=== PATIENT | male | born 1925 | race Caucasian/White ===

== ENCOUNTER → 2016-10-31 | Outpatient (CLI) | payer MEDICARE, BC ==
[~2016-10-31] MED LIST: AMLO5TAB2 PO; ATOR20TA42 PO; ATOR40TA16 PO; CEFU1TAB43 PO; CENTTAB9 PO; DIGO0.123 PO; DIGO0.25 PO; JANT5TAB PO; LEVO100T5 PO; LISI-366 PO; LISI40TA PO; METO100T9 PO; WARF2.5T40 PO; WARF5TAB PO
[2016-10-31 08:54] LABS: INTERNATIONAL NORMALIZED RATIO 2.8 RATIO; PROTHROMBIN TIME - PATIENT 32.4 SEC (9.8-11.6)
== END ==
LOC: PLAB 06:33
PROVIDERS: ATTEND Family Medicine
DX: Z79.01 Long term (current) use of anticoagulants (principal)
CPT/HCPCS: 36415; 85610

== ENCOUNTER → 2016-12-12 | Outpatient (CLI) | payer MEDICARE, BC ==
[2016-12-12 08:35] LABS: INTERNATIONAL NORMALIZED RATIO 2.7 RATIO; PROTHROMBIN TIME - PATIENT 31.4 SEC (9.8-11.6)
== END ==
LOC: PLAB 06:34
PROVIDERS: ATTEND Family Medicine
DX: Z79.01 Long term (current) use of anticoagulants (principal); Z51.81 Encounter for therapeutic drug level monitoring
CPT/HCPCS: 36415; 85610

== ENCOUNTER → 2016-12-21 | Outpatient (CLI) | payer MEDICARE, BC ==
[2016-12-21 08:49] LABS: INTERNATIONAL NORMALIZED RATIO 3.2 RATIO; PROTHROMBIN TIME - PATIENT 37.2 SEC (9.8-11.6)
[2016-12-21 10:10] LABS: AUTOMATED NEUTROPHIL # 6.5 TH/MM3 (1.8-7.7); BASOPHIL # 0.1 TH/MM3 (0-0.2); BASOPHIL % 1.2 % (0.0-2.0); EOSINOPHIL # 0.7 TH/MM3 (0-0.4); EOSINOPHIL % 7.7 % (0.0-4.0); HEMATOCRIT 34.6 % (39.0-51.0); HEMO FLAGS DIFF FINAL; LYMPH % 6.3 % (9.0-44.0); LYMPHOCYTE # 0.5 TH/MM3 (1.0-4.8); MEAN CELL VOLUME 87.9 FL (80.0-100.0); MEAN CORPUSCULAR HEMOGLOBIN 28.6 PG (27.0-34.0); MEAN CORPUSCULAR HGB CONC 32.5 % (32.0-36.0); MONO % 10.4 % (0.0-8.0); NEUT % 74.4 % (16.0-70.0); PLATELET COUNT 278 TH/MM3 (150-450); RED BLOOD COUNT 3.93 MIL/MM3 (4.50-5.90); RED CELL DISTRIBUTION WIDTH 14.3 % (11.6-17.2); WHITE BLOOD COUNT 8.7 TH/MM3 (4.0-11.0)
[2016-12-21 10:37] LABS: ALKALINE PHOSPHATASE 130 U/L (45-117); ALT (GPT) 24 U/L (12-78); ANION GAP 5 MEQ/L (5-15); AST (GOT) 22 U/L (15-37); BICARBONATE 29.6 MEQ/L (21.0-32.0); BLOOD UREA NITROGEN 31 MG/DL (7-18); CHLORIDE 106 MEQ/L (98-107); GLOMERULAR FILTRATION RATE 24 ML/MIN (>89); GLUCOSE,FASTING 114 MG/DL (74-99); HDL CHOLESTEROL 34.4 MG/DL (40.0-60.0); LDL CHOLESTEROL 75 MG/DL (0-99); SODIUM (NA) 141 MEQ/L (136-145); TOTAL BILIRUBIN ADULT 0.3 MG/DL (0.2-1.0)
== END ==
LOC: PLAB 06:46
PROVIDERS: ATTEND Family Medicine
DX: I10 Essential (primary) hypertension (principal); E78.4 Other hyperlipidemia; R53.81 Other malaise; R73.01 Impaired fasting glucose
CPT/HCPCS: 36415; 80053; 80061; 84439; 84443; 85025; 85610

== ENCOUNTER 2017-01-01 07:56 | Emergency (ER) | payer MEDICARE, BC ==
[~2017-01-01] VITALS: Ht 180.3 cm; Wt 76.5 kg
[~2017-01-01 07:56] MED LIST changes: -AMLO5TAB2 PO; -ATOR40TA16 PO; -DIGO0.25 PO; -JANT5TAB PO; -LEVO100T5 PO; -LISI40TA PO
[2017-01-01 08:00] VITALS: BP 168/67; PULSE 64; RESP 16; TEMP 97.7; O2SAT 97
[2017-01-01] MEDS ORDERED: DIGO0.25 PO (08:12)
[2017-01-01] MEDS ORDERED: ATOR40TA16 PO (08:12)
[2017-01-01] MEDS ORDERED: LISI40TA PO (08:12)
[2017-01-01] MEDS ORDERED: LEVO100T5 PO (08:12)
[2017-01-01] MEDS ORDERED: METO100T9 PO (08:12)
[2017-01-01] MEDS ORDERED: JANT5TAB PO (08:12)
[2017-01-01] MEDS ORDERED: AMLO5TAB2 PO (08:12)
--- NOTE | 2017-01-01 08:35 | PD ---
HPI Chief Complaint: Skin Problem Time Seen by Provider: 08:05 Travel History International Travel<30 days: No Contact w/Intl Traveler<30days: No Traveled to known affect area: No History of Present Illness HPI This 89-year-old male is complaining of a skin tear on his left elbow. He bumped the elbow on Monday he put a Band-Aid on it and when he took the Band- Aid off on Monday a lot of skin came off with it. He's had some oozing of blood from the area ever since. He has not had fever or chills. He is able to move the elbow without pain. He has a history of valve repair and atrial fibrillation. He is on Coumadin and digoxin. His INR was 3.2 on December 21. 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) Other Surgery: Yes Social History Alcohol Use: Yes (OCC.) Tobacco Use: No (QUIT 1959) Substance Use: No Allergies-Medications (Allergen,Severity, Reaction): Coded Allergies: No Known Allergies (Verified , 01/01/17) Reported Meds & Prescriptions Reported Meds & Active Scripts Active Reported Amlodipine (Amlodipine Besylate) 5 Mg Tab 5 Mg PO DAILY Digoxin 0.25 Mg Tab 0.25 Mg PO DAILY Jantoven (Warfarin) 5 Mg Tab 5 Mg PO DAILY Atorvastatin (Atorvastatin Calcium) 40 Mg Tab 40 Mg PO HS Metoprolol Succinate ER 24 HR (Metoprolol Succinate) 100 Mg Tab 100 Mg PO DAILY Lisinopril 40 Mg Tab 40 Mg PO DAILY Review of Systems General / Constitutional: No: Fever, Chills Eyes: No: Diploplia HENT: No: Vertigo Cardiovascular: No: Chest Pain or Discomfort, Palpitations Gastrointestinal: No: Vomiting, Diarrhea Skin: Positive Rash Hematologic/Lymphatic: Positive: Easy Bruising Physical Exam Narrative GENERAL: Well-developed male SKIN: Focused skin assessment warm/dry. HEAD: Atraumatic. Normocephalic. EYES: Pupils equal and round. No scleral icterus. No injection or drainage. ENT: No nasal bleeding or discharge. Mucous membranes pink and moist. NECK: Trachea midline. No JVD. MUSCULOSKELETAL: No obvious deformities. No clubbing. No cyanosis. No edema. Examining the left elbow he has full range of motion. There is a skin tear with some oozing of blood. There has been also part of the skin from the stair. Skin turgor is a tooth 3 cm in length. There is no erythema or purulent drainage NEUROLOGICAL: Awake and alert. No obvious cranial nerve deficits. Motor grossly within normal limits. Normal speech. PSYCHIATRIC: Appropriate mood and affect; insight and judgment normal. Data Data Last Documented VS Vital Signs Date Time Temp Pulse Resp B/P Pulse Ox O2 Delivery O2 Flow Rate FiO2 01/01/17 08:00 97.7 64 16 168/67 97 Orders Prothrombin Time / Inr (Pt) (01/01/17 08:14) Labs Laboratory Tests Test 01/01/17 08:20 Prothrombin Time 40.1 SEC Prothromb Time International 3.4 RATIO Ratio MDM Medical Decision Making Medical Screen Exam Complete: Yes Emergency Medical Condition: Yes Medical Record Reviewed: Yes Differential Diagnosis Differential includes skin tear, coagulopathy Narrative Course His INR today is 3.4. I will recommend that he hold his Coumadin today. He is to follow-up with Dr. Chavez. We cleaned the wound and applied some glue and a Coban dressing. Departure Forms: Tests/Procedures Additional Instructions: Leave dressing on for 2 days. Hold Coumadin today. Return as needed Condition: Deshawn Vasquez MD Jan 01, 2017 08:35
[2017-01-01 08:43] LABS: INTERNATIONAL NORMALIZED RATIO 3.4 RATIO; PROTHROMBIN TIME - PATIENT 40.1 SEC (9.8-11.6)
== END 2017-01-01 09:16 | disposition home or self-care (01) ==
LOC: PHED 07:56
DX: S51.012A Laceration without foreign body of left elbow, initial encounter (principal); R79.1 Abnormal coagulation profile; I10 Essential (primary) hypertension; E78.00 Pure hypercholesterolemia, unspecified; H91.90 Unspecified hearing loss, unspecified ear; Z79.01 Long term (current) use of anticoagulants; Z86.79 Personal history of other diseases of the circulatory system; Z87.448 Personal history of other diseases of urinary system; Z87.39 Personal history of other diseases of the musculoskeletal system and connective tissue; W22.8XXA Striking against or struck by other objects, initial encounter
CPT/HCPCS: 85610; 99283

== ENCOUNTER → 2017-02-01 | Outpatient (CLI) | payer MEDICARE, BC ==
[~2017-02-01] MED LIST changes: +AMLO5TAB2 PO; -ATOR20TA42 PO; +ATOR40TA16 PO; -CEFU1TAB43 PO; -CENTTAB9 PO; -DIGO0.123 PO; +DIGO0.25 PO; +JANT5TAB PO; +LEVO100T5 PO; -LISI-366 PO; +LISI40TA PO; -WARF2.5T40 PO; -WARF5TAB PO
[2017-02-01 08:39] LABS: INTERNATIONAL NORMALIZED RATIO 2.6 RATIO; PROTHROMBIN TIME - PATIENT 29.4 SEC (9.8-11.6)
== END ==
LOC: PLAB 06:43
PROVIDERS: ATTEND Family Medicine
DX: Z79.01 Long term (current) use of anticoagulants (principal)
CPT/HCPCS: 36415; 85610

== ENCOUNTER 2017-02-03 07:07 | Emergency (ER) | payer MEDICARE, BC ==
[~2017-02-03] VITALS: Ht 180.3 cm; Wt 76.1 kg
[2017-02-03 07:15] VITALS: BP 159/68; PULSE 65; RESP 18; TEMP 97.8; O2SAT 96
--- NOTE | 2017-02-03 07:27 | PD ---
HPI Chief Complaint: Fall Time Seen by Provider: 07:24 Travel History International Travel<30 days: No Contact w/Intl Traveler<30days: No Traveled to known affect area: No History of Present Illness HPI 89-year-old male patient currently on Januvia, presents to the ER today because he states that he had tripped and fell in the parking lot of the [facility] and hit his head, had no loss consciousness, and also caught his arms on the gravel, has skin tears to both elbow and forearm areas. He denies any other issues or injuries. He was able to get himself up on his own. Modifying Factors: None Associated Signs & Symptoms: Trip and fall, minor head injury, skin tears to the arms Risk Factors: None PFSH Past Medical History Hx Anticoagulant Therapy: Yes Atrial Fibrillation: Yes Heart Rhythm Problems: Yes Cancer: No Cardiac Catheterization: Yes Cardiovascular Problems: Yes High Cholesterol: Yes Congestive Heart Failure: No Diminished Hearing: Yes (BILAT HEARING AIDS) Endocrine: No Genitourinary: Yes (bladder doesn't fully empty) Hypertension: Yes Immune Disorder: No Musculoskeletal: Yes Neurologic: No Psychiatric: No Reproductive: No Respiratory: No Past Surgical History Appendectomy: Yes Cardiac Surgery: Yes (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) Other Surgery: Yes Social History Alcohol Use: Yes (OCC.) Tobacco Use: No (QUIT 1959) Substance Use: No Allergies-Medications (Allergen,Severity, Reaction): Coded Allergies: No Known Allergies (Verified , 02/03/17) Reported Meds & Prescriptions Reported Meds & Active Scripts Active Reported Levothyroxine (Levothyroxine Sodium) 100 Mcg Tab 100 Mcg PO DAILY Amlodipine (Amlodipine Besylate) 5 Mg Tab 5 Mg PO DAILY Digoxin 0.25 Mg Tab 0.25 Mg PO DAILY Jantoven (Warfarin) 5 Mg Tab 5 Mg PO DAILY Atorvastatin (Atorvastatin Calcium) 40 Mg Tab 40 Mg PO HS Metoprolol Succinate ER 24 HR (Metoprolol Succinate) 100 Mg Tab 100 Mg PO DAILY Lisinopril 40 Mg Tab 40 Mg PO DAILY Review of Systems Except as stated in HPI: all other systems reviewed are Neg Physical Exam Narrative GENERAL: Well-developed elderly white male patient currently not in acute distress. Awake and oriented 3. SKIN: Focused skin assessment warm/dry. Skin tears to both elbows. HEAD: Small amount of ecchymosis to the right eyebrow, nontender palpation. Normocephalic. EYES: Pupils equal and round. No scleral icterus. No injection or drainage. No orbital rim tenderness or bony tenderness. ENT: No nasal bleeding or discharge. Mucous membranes pink and moist. NECK: Trachea midline. No JVD. CARDIOVASCULAR: Regular rate and rhythm. No murmur appreciated. RESPIRATORY: No accessory muscle use. Clear to auscultation. Breath sounds equal bilaterally. GASTROINTESTINAL: Abdomen soft, non-tender, nondistended. Hepatic and splenic margins not palpable. MUSCULOSKELETAL: No obvious deformities. No clubbing. No cyanosis. No edema. EXTREMITIES: No clubbing, cyanosis, or edema. No joint tenderness, effusion, or edema noted. No bony tenderness. Nontender range of motion of both arms. NEUROLOGICAL: Awake and alert. No obvious cranial nerve deficits. Motor grossly within normal limits. Normal speech. PSYCHIATRIC: Appropriate mood and affect; insight and judgment normal. Data Data Last Documented VS Vital Signs Date Time Temp Pulse Resp B/P Pulse Ox O2 Delivery O2 Flow Rate FiO2 02/03/17 07:26 16 Room Air 02/03/17 07:15 97.8 65 159/[address] Brain W/O Iv Contrast(Rout) (02/03/17 07:20) Tetanus/Diphtheria Tox Adult (Tetanus/Di (02/03/17 07:30) MDM Medical Decision Making Medical Screen Exam Complete: Yes Emergency Medical Condition: Yes Medical Record Reviewed: Yes Differential Diagnosis Trip and fall, minor head injury, skin tearsrule out acute intracranial injuries Narrative Course Skin tears were cleaned and dressed with Tegaderm is placed. CT of the brain was negative for any signs of acute intracranial processes. At this point, my plan would be to release the patient would follow-up to primary care physician. Return for any worsening in pains, headaches, vomiting, disorientation, or new issues as needed. The plan has been discussed with patient and his and they state understanding. Diagnosis Primary Impression: Minor closed head injury Additional Impression: Skin tear of right elbow without complication Disposition: 01 DISCHARGE HOME Condition: Stable Fernandez Shahid MD February 03, 2017 07:27
[2017-02-03] MEDS ORDERED: TETANUS/DIPHTHERIA TOXOID ADULT 0.5 ML VIAL IM ONE (07:30)
--- NOTE | 2017-02-03 08:09 | RADHPO ---
EXAM DATE/TIME: 02/03/2017 07:42 [facility] COMPARISON: No previous studies available for comparison. INDICATIONS : Trauma. Trip and fall. Hit right forehead. RADIATION DOSE: 61.69 CTDIvol (mGy) MEDICAL HISTORY : Cardiovascular disease. Hypertension. SURGICAL HISTORY : Appendectomy. Heart valve replacement. ENCOUNTER: Initial ACUITY: 1 day PAIN SCALE: 0/10 LOCATION: Right frontal TECHNIQUE: Multiple contiguous axial images were obtained of the head. Using automated exposure control and adj ustment of the mA and/or kV according to patient size, radiation dose was kept as low as reasonably a chievable to obtain optimal diagnostic quality images. FINDINGS: CEREBRUM: There is moderate generalized atrophy. Ventricles are normal in size. There is mild periventricular w radha matter low attenuation. Encephalomalacia is present in the medial right occipital lobe. No evid ence of midline shift, mass lesion, hemorrhage or acute infarction. No extra-axial fluid collections are seen. POSTERIOR FOSSA: The cerebellum and brainstem are intact. The 4th ventricle is midline. The cerebellopontine angle i s unremarkable. EXTRACRANIAL: Visualized sinuses are clear. SKULL: The calvaria is intact. No evidence of skull fracture. CONCLUSION: 1. No acute intracranial abnormality is identified. 2. 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 There is also general ized atrophy and mild chronic periventricular white matter ischemic change. Daniel Olivia MD on February 03, 2017 at 8:04 Board Certified Radiologist. This report was verified electronically.
[2017-02-03 08:32] VITALS: BP 153/62
== END 2017-02-03 08:35 | disposition home or self-care (01) ==
LOC: PHED 07:07
DX: S09.90XA Unspecified injury of head, initial encounter (principal); S51.011A Laceration without foreign body of right elbow, initial encounter; I48.91 Unspecified atrial fibrillation; E78.00 Pure hypercholesterolemia, unspecified; I10 Essential (primary) hypertension; Z79.01 Long term (current) use of anticoagulants; Z87.891 Personal history of nicotine dependence; W01.0XXA Fall on same level from slipping, tripping and stumbling without subsequent striking against object, initial encounter; Y93.01 Activity, walking, marching and hiking; Y92.481 Parking lot as the place of occurrence of the external cause; Y99.8 Other external cause status
CPT/HCPCS: 70450

== ENCOUNTER → 2017-03-15 | Outpatient (CLI) | payer MEDICARE, BC ==
[2017-03-15 09:01] LABS: PROTHROMBIN TIME - PATIENT 34.8 SEC (9.8-11.6)
== END ==
LOC: PLAB 06:41
PROVIDERS: ATTEND Family Medicine
DX: Z79.01 Long term (current) use of anticoagulants (principal)
CPT/HCPCS: 36415; 85610

== ENCOUNTER 2017-04-11 12:16 | Inpatient (IN) | payer MEDICARE, BC ==
[~2017-04-11] VITALS: Ht 180.3 cm; Wt 70.6 kg
[2017-04-11 12:25] VITALS: BP 158/66; PULSE 82; RESP 15; TEMP 98.3; O2SAT 97
[2017-04-11] MEDS ORDERED: JANT2.5T PO (13:32)
[2017-04-11] MEDS ORDERED: VANCOMYCIN INJ 1,000 MG in SODIUM CHLOR 0.9% 250 ML INJ 250 ML IV STA (13:33)
[2017-04-11] MEDS ORDERED: PIPERACIL-TAZO 3.375 GM PREMIX 50 ML IV ONE (13:45)
[2017-04-11 14:13] VITALS: O2SAT 96
--- NOTE | 2017-04-11 14:23 | PD ---
HPI Chief Complaint: Skin Problem Time Seen by Provider: 13:33 Travel History International Travel<30 days: No Contact w/Intl Traveler<30days: No Traveled to known affect area: No History of Present Illness HPI 89-year-old male presents with redness to his right leg that is been present for the past week. He went to Dr. Zee today who cut a callus on his right big toe and sent him here for IV antibiotic therapy. He is on Coumadin in terms of blood thinner medications. He denies any fever or other complaints other than the redness and localized discomfort over that area. He denies any recent trauma. Quality is red. Severity is right leg. 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) Other Surgery: Yes Social History Alcohol Use: Yes (OCC.) Tobacco Use: No (QUIT 1959) Substance Use: No Allergies-Medications (Allergen,Severity, Reaction): Coded Allergies: No Known Allergies (Verified , 04/11/17) Reported Meds & Prescriptions Reported Meds & Active Scripts Active Reported Levothyroxine (Levothyroxine Sodium) 100 Mcg Tab 100 Mcg PO DAILY Amlodipine (Amlodipine Besylate) 5 Mg Tab 5 Mg PO DAILY Digoxin 0.25 Mg Tab 0.25 Mg PO DAILY Octtoven (Warfarin) 5 Mg Tab 5 Mg PO MONDAY Atorvastatin (Atorvastatin Calcium) 40 Mg Tab 40 Mg PO HS Metoprolol Succinate ER 24 HR (Metoprolol Succinate) 100 Mg Tab 100 Mg PO DAILY Lisinopril 40 Mg Tab 40 Mg PO DAILY Octtoven (Warfarin) 2.5 Mg Tab 2.5 Mg PO ,,,TH,FR,SA Review of Systems Except as stated in HPI: all other systems reviewed are Neg Physical Exam Narrative GENERAL: Well-nourished, well-developed patient. SKIN: Warm and dry. Erythema and warmth noted to anterior aspect of right lower leg from knee down, to plantar aspect of right hallux patient has mild amount of bleeding from area that was debrided HEAD: Normocephalic EYES: No injection or drainage. ENT: No nasal drainage noted. NECK: Supple, trachea midline. CARDIOVASCULAR: Regular rate and rhythm RESPIRATORY: No increased effort. No accessory muscle use. GASTROINTESTINAL: Abdomen soft, non-tender, nondistended. EXTREMITIES: Pain with palpation of mild pain over right lower leg with associated erythema and warmth, no pain with specific joints , palpable dorsalis pedis pulse and posterior tibialis pulse on the right, sensation grossly intact, compartments soft. NEUROLOGICAL: Awake. Moves all extremities. Normal speech. Data Data Last Documented VS Vital Signs Date Time Temp Pulse Resp B/P Pulse Ox O2 Delivery O2 Flow Rate FiO2 04/11/17 14:13 96 Room Air 04/11/17 12:25 98.3 82 15 158/66 Orders Complete Blood Count With Diff (04/11/17 13:33) Comprehensive Metabolic Panel (04/11/17 13:33) Prothrombin Time / Inr (Pt) (04/11/17 13:33) Act Partial Throm Time (Ptt) (04/11/17 13:33) Lactic Acid Sepsis Protocol (04/11/17 13:33) Magnesium (Mg) (04/11/17 13:33) Phosphorus (Po4) (04/11/17 13:33) Blood Culture (04/11/17 13:33) Ecg Monitoring (04/11/17 13:33) Iv Access Insert/Monitor (04/11/17 13:33) Oximetry (04/11/17 13:33) Vancomycin Inj (Vancomycin Inj) (04/11/17 13:33) Piperacil-Tazo 3.375 Gm Premix (Zosyn 3. (04/11/17 13:45) Foot, Complete (Qti7sma) (04/11/17 ) Tibia/Fibula (Ap/Lat) (04/11/17 ) Admit Order (Ed Use Only) (04/11/17 15:14) Labs Laboratory Tests Test 04/11/17 04/11/17 14:00 14:34 Lactic Acid Level 1.0 mmol/L White Blood Count 8.4 TH/MM3 Red Blood Count 3.10 MIL/MM3 Hemoglobin 8.9 GM/DL Hematocrit 26.4 % Mean Corpuscular Volume 85.4 FL Mean Corpuscular Hemoglobin 28.7 PG Mean Corpuscular Hemoglobin 33.6 % Concent Red Cell Distribution Width 14.2 % Platelet Count 398 TH/MM3 Mean Platelet Volume 6.6 FL Neutrophils (%) (Auto) 76.9 % Lymphocytes (%) (Auto) 4.9 % Monocytes (%) (Auto) 12.7 % Eosinophils (%) (Auto) 5.4 % Basophils (%) (Auto) 0.1 % Neutrophils # (Auto) 6.4 TH/MM3 Lymphocytes # (Auto) 0.4 TH/MM3 Monocytes # (Auto) 1.1 TH/MM3 Eosinophils # (Auto) 0.5 TH/MM3 Basophils # (Auto) 0.0 TH/MM3 CBC Comment DIFF FINAL Differential Comment Prothrombin Time 29.8 SEC Prothromb Time International 2.6 RATIO Ratio Activated Partial 46.5 SEC Thromboplast Time Sodium Level 138 MEQ/L Potassium Level 4.5 MEQ/L Chloride Level 103 MEQ/L Carbon Dioxide Level 27.6 MEQ/L Anion Gap 7 MEQ/L Blood Urea Nitrogen 37 MG/DL Creatinine 2.60 MG/DL Estimat Glomerular Filtration 23 ML/MIN Rate Random Glucose 138 MG/DL Calcium Level 7.7 MG/DL Phosphorus Level 3.6 MG/DL Magnesium Level 2.2 MG/DL Total Bilirubin 0.3 MG/DL Aspartate Amino Transf 24 U/L (AST/SGOT) Alanine Aminotransferase 29 U/L (ALT/SGPT) Alkaline Phosphatase 113 U/L Total Protein 6.5 GM/DL Albumin 2.3 GM/DL MDM Medical Decision Making Medical Screen Exam Complete: Yes Emergency Medical Condition: Yes Medical Record Reviewed: Yes (past history confirmed) Interpretation(s) CBC & BMP Diagram 04/11/17 14:34 Last 24 hours Impressions Tibia/Fibula X-Ray 04/11/17 0000 Signed Impressions: Service Date/Time: Tuesday, April 11, 2017 14:48 - CONCLUSION: Soft tissue swelling and no definite fracture for technique. Marcel Pabon MD Foot X-Ray 04/11/17 0000 Signed Impressions: Service Date/Time: Tuesday, April 11, 2017 14:52 - CONCLUSION: Chronic changes and no evidence for acute fracture. Marcel Pabon MD Differential Diagnosis Cellulitis, osteomyelitis, abscess Narrative Course Will check blood work, right leg x-ray and dose with Zosyn and vancomycin and he will need admission to the hospital ed workup with cellulitis but without elevated white count, fever and with normal lactate, patient and updated Physician Communication Physician Communication dr nolen agrees to admit Diagnosis Primary Impression: Cellulitis Qualified Code: L03.115 - Cellulitis of right lower extremity Additional Impressions: Renal insufficiency Anemia Qualified Code: D64.9 - Anemia, unspecified type Admitting Information Admitting Physician Requests: Admit Krystal Winn MD Apr 11, 2017 14:22 Kyrstal Winn MD Apr 11, 2017 14:22
[2017-04-11 14:42] LABS: AUTOMATED NEUTROPHIL # 6.4 TH/MM3 (1.8-7.7); BASOPHIL % 0.1 % (0.0-2.0); EOSINOPHIL # 0.5 TH/MM3 (0-0.4); EOSINOPHIL % 5.4 % (0.0-4.0); HEMATOCRIT 26.4 % (39.0-51.0); HEMO FLAGS DIFF FINAL; LYMPH % 4.9 % (9.0-44.0); LYMPHOCYTE # 0.4 TH/MM3 (1.0-4.8); MEAN CELL VOLUME 85.4 FL (80.0-100.0); MEAN CORPUSCULAR HEMOGLOBIN 28.7 PG (27.0-34.0); MEAN CORPUSCULAR HGB CONC 33.6 % (32.0-36.0); MONO % 12.7 % (0.0-8.0); NEUT % 76.9 % (16.0-70.0); PLATELET COUNT 398 TH/MM3 (150-450); RED CELL DISTRIBUTION WIDTH 14.2 % (11.6-17.2); WHITE BLOOD COUNT 8.4 TH/MM3 (4.0-11.0)
[2017-04-11 14:49] LABS: CHLORIDE 103 MEQ/L (98-107); POTASSIUM 4.5 MEQ/L (3.5-5.1); SODIUM (NA) 138 MEQ/L (136-145)
[2017-04-11 14:53] LABS: ANION GAP 7 MEQ/L (5-15); BICARBONATE 27.6 MEQ/L (21.0-32.0); BLOOD UREA NITROGEN 37 MG/DL (7-18); MAGNESIUM 2.2 MG/DL (1.5-2.5)
[2017-04-11 14:54] LABS: APTT (PATIENT) 46.5 SEC (24.3-30.1); INTERNATIONAL NORMALIZED RATIO 2.6 RATIO; PROTHROMBIN TIME - PATIENT 29.8 SEC (9.8-11.6)
[2017-04-11 14:56] LABS: ALT (GPT) 29 U/L (12-78); AST (GOT) 24 U/L (15-37); GLOMERULAR FILTRATION RATE 23 ML/MIN (>89)
[2017-04-11 14:58] LABS: TOTAL BILIRUBIN ADULT 0.3 MG/DL (0.2-1.0)
[2017-04-11 14:59] LABS: ALKALINE PHOSPHATASE 113 U/L (45-117)
[2017-04-11] MEDS ORDERED: MAGNESIUM HYDROXIDE SUSP 30 ML CUP PO PRN (15:15)
[2017-04-11] MEDS ORDERED: SENNOSIDES 8.6 MG TAB PO PRN (15:15)
[2017-04-11] MEDS ORDERED: ONDANSETRON HCL 4 MG/2 ML VIAL IVP PRN (15:15)
[2017-04-11] MEDS ORDERED: ENOXAPARIN SODIUM 40 MG/0.4 ML SYRINGE SQ SCH (15:15)
[2017-04-11] MEDS ORDERED: BISACODYL 10 MG SUPP RECTAL PRN (15:15)
[2017-04-11] MEDS ORDERED: LACTULOSE SYRUP 20 GM/30 ML CUP PO PRN (15:15)
[2017-04-11] MEDS ORDERED: SODIUM CHLORIDE 0.9% FLUSH 10 ML FLUSH IV FLUSH PRN (15:15)
[2017-04-11] MEDS ORDERED: ACETAMINOPHEN 325 MG TAB PO PRN (15:15)
[2017-04-11] MEDS ORDERED: Vancomycin Consult Pharmacy 1 EA OTHER SCH (15:30)
--- NOTE | 2017-04-11 15:30 | RADRPT ---
EXAM DATE/TIME: 04/11/2017 14:48 [facility] COMPARISON: No previous studies available for comparison. INDICATIONS : Right lower leg pain and swelling for several days. MEDICAL HISTORY : Cardiovascular disease. Hypertension. SURGICAL HISTORY : Appendectomy. Heart valve replacement. ENCOUNTER: Initial ACUITY: 3 days PAIN SCORE: 4/10 LOCATION: Right lower leg. FINDINGS: No definite fractures, or dislocations are identified. No definite lytic or sclerotic lesion is seen . Soft tissue swelling is identified with subcutaneous edema. CONCLUSION: Soft tissue swelling and no definite fracture for mary kate. Marcel Pabon MD on April 11, 2017 at 15:26 Board Certified Radiologist. This report was verified electronically.
--- NOTE | 2017-04-11 15:30 | RADRPT ---
EXAM DATE/TIME: 04/11/2017 14:52 [facility] COMPARISON: No previous studies available for comparison. INDICATIONS : Right foot pain and swelling for several days. MEDICAL HISTORY : Cardiovascular disease. Hypertension. SURGICAL HISTORY : Appendectomy. Heart valve replacement. ENCOUNTER: Initial ACUITY: 3 days PAIN SCORE: 4/10 LOCATION: Right foot. FINDINGS: No definite fractures, or dislocations are identified. No definite lytic or sclerotic lesion is seen . Calcaneal spur is present at the attachment site of the plantar aponeurosis. There are degenerativ e changes within multiple joints mainly the interphalangeal joints and the first metatarsophalangeal joint. CONCLUSION: Chronic changes and no evidence for acute fracture. Marcel Pabon MD on April 11, 2017 at 15:28 Board Certified Radiologist. This report was verified electronically.
[2017-04-11 15:53] VITALS: O2SAT 96
--- NOTE | 2017-04-11 16:51 | PD.CONS ---
History of Present Illness Service Podiatry Consult Requested By ED Reason for Consult Infection R foot/ankle/leg Primary Care Physician Zoe Chavez MD Diagnoses: History of Present Illness Patient was in office today for follow up of an ulcer to R hallux. He stated that the toe became more red and painful through this past weekend. I&D of abscess was performed in-office, and cultures taken in-office today, then patient sent to ED to for IV antibiotics after discussion of the severity of signs/symptoms. 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 Active Ordered Medications Current Medications Medications (Trade) Dose Ordered Sig/Jimy Route Start Time Stop Time Status Last Admin (NS 1000 ml Inj) 1,000 ml @ 100 mls/hr Q10H IV 04/11/17 15:15 (NS Flush) 2 ml UNSCH PRN IV FLUSH 04/11/17 15:15 (NS Flush) 2 ml BID IV FLUSH 04/11/17 21:00 (Tylenol) 650 mg Q4H PRN PO 04/11/17 15:15 (Zofran Inj) 4 mg Q6H PRN IVP 04/11/17 15:15 (Restoril) 15 mg HS PRN PO 04/11/17 15:15 (Pilar-Colace) 1 tab BID PO 04/11/17 21:00 (Milk Of Magnesia Liq) 30 ml Q12H PRN PO 04/11/17 15:15 (Senokot) 17.2 mg Q12H PRN PO 04/11/17 15:15 (Dulcolax Supp) 10 mg DAILY PRN RECTAL 04/11/17 15:15 (Lactulose Liq) 30 ml DAILY PRN PO 04/11/17 15:15 (Norvasc) 5 mg DAILY PO 04/12/17 09:00 (Lipitor) 40 mg HS PO 04/11/17 21:00 (Lanoxin) 0.25 mg DAILY PO 04/12/17 09:00 (Synthroid) 100 mcg DAILY@06 PO 04/12/17 06:00 (Coumadin) 2.5 mg DAILY PO 04/12/17 09:00 UNV (Coumadin) 5 mg DAILY PO 04/12/17 09:00 UNV (Prinivil) 40 mg DAILY PO 04/12/17 09:00 Metoprolol Succinate 100 mg 100 mg DAILY PO 04/12/17 09:00 Piperacillin Sod/ Tazobactam Sod 50 ml @ 100 mls/hr Q6H IV 04/11/17 15:30 UNV Pharmacy Profile Note 0 ml @ 0 mls/hr UNSCH OTHER 04/11/17 15:30 UNV Vancomycin HCl 1000 mg/Sodium Chloride 250 ml @ 250 mls/hr Q12H IV 04/11/17 15:30 UNV (Coumadin Consult Pharmacy) 0 ml @ 0 mls/hr UNSCH OTHER 04/11/17 15:30 UNV Social History occasional alcohol, quit smoking 1959, denies drug use Physical Exam Vital Signs Vital Signs Date Time Temp Pulse Resp B/P Pulse Ox O2 Delivery O2 Flow Rate FiO2 04/11/17 15:53 96 04/11/17 14:13 96 Room Air 04/11/17 12:25 98.3 82 15 158/66 97 Physical Exam Palpable pedal pulses. R lower leg with erythema extending from R hallux to mid- calf with pitting edema present. Plantar R hallux with ulceration. No visible or palpable bone. No residual purulence post-I&D in-office earlier. Laboratory Laboratory Tests Test 04/11/17 04/11/17 14:00 14:34 Lactic Acid Level 1.0 White Blood Count 8.4 Red Blood Count 3.10 Hemoglobin 8.9 Hematocrit 26.4 Mean Corpuscular Volume 85.4 Mean Corpuscular Hemoglobin 28.7 Mean Corpuscular Hemoglobin 33.6 Concent Red Cell Distribution Width 14.2 Platelet Count 398 Mean Platelet Volume 6.6 Neutrophils (%) (Auto) 76.9 Lymphocytes (%) (Auto) 4.9 Monocytes (%) (Auto) 12.7 Eosinophils (%) (Auto) 5.4 Basophils (%) (Auto) 0.1 Neutrophils # (Auto) 6.4 Lymphocytes # (Auto) 0.4 Monocytes # (Auto) 1.1 Eosinophils # (Auto) 0.5 Basophils # (Auto) 0.0 CBC Comment DIFF FINAL Differential Comment Prothrombin Time 29.8 Prothromb Time International 2.6 Ratio Activated Partial 46.5 Thromboplast Time Sodium Level 138 Potassium Level 4.5 Chloride Level 103 Carbon Dioxide Level 27.6 Anion Gap 7 Blood Urea Nitrogen 37 Creatinine 2.60 Estimat Glomerular Filtration 23 Rate Random Glucose 138 Calcium Level 7.7 Phosphorus Level 3.6 Magnesium Level 2.2 Total Bilirubin 0.3 Aspartate Amino Transf 24 (AST/SGOT) Alanine Aminotransferase 29 (ALT/SGPT) Alkaline Phosphatase 113 Total Protein 6.5 Albumin 2.3 Date/Time Procedure Status Source Growth 04/11/17 14:05 Aerobic Blood Culture Received Blood Peripheral Pending 04/11/17 14:05 Anaerobic Blood Culture Received Blood Peripheral Pending Result Diagram: 04/11/17 1434 04/11/17 1434 Imaging Last Impressions Tibia/Fibula X-Ray 04/11/17 0000 Signed Impressions: Service Date/Time: Tuesday, April 11, 2017 14:48 - CONCLUSION: Soft tissue swelling and no definite fracture for technique. Marcel Pabon MD Foot X-Ray 04/11/17 0000 Signed Impressions: Service Date/Time: Tuesday, April 11, 2017 14:52 - CONCLUSION: Chronic changes and no evidence for acute fracture. Marcel Pabon MD Assessment and Plan Assessment and Plan Infection/cellulitis R foot/ankle/leg Continue IV antibiotics Will assess wound to determine progress Continue dressing changes as ordered Will acquire culture results and relay to primary team when completed Elmer Zee DPM Apr 11, 2017 16:51
[2017-04-11] MEDS ORDERED: MUPIROCIN 2% OINT 22 GM TUBE TOPICAL ONE (17:00)
[2017-04-11] MEDS: SODIUM CHLOR 0.9% 1000 ML INJ 1,000 ML IV SCH (17:52)
[2017-04-11 17:54] VITALS: BP 178/83; PULSE 70; RESP 20; O2SAT 97
[2017-04-11] MEDS: WARFARIN SOD 2.5 MG TAB PO SCH (18:26)
[2017-04-11 20:00] VITALS: BP 164/79; PULSE 76; RESP 20; TEMP 96.2; O2SAT 97
--- NOTE | 2017-04-11 20:09 | HHI.HP ---
HPI Service [facility] Primary Care Physician Zoe Chavez MD Admission Diagnosis cellulitis Diagnoses: Chief Complaint: rash Travel History International Travel<30 Days: No Contact w/Intl Traveler <30 Da: No Traveled to Known Affected Are: No History of Present Illness Patient is a very pleasant 89-year-old male with past medical history of A. fib on Coumadin, hypothyroidism, hyperlipidemia, delayed emptying of the bladder who came to the emergency room sent by his oracle fusion developer for IV antibiotics. Patient was in his podiatry Dr King office today for follow up of an ulcer to R hallux. He stated that the toe became more red and painful through this past weekend. I&D of abscess was performed in-office by his podiatry doctor and cultures taken in-office today, then patient was sent to ED to for IV antibiotics. Patient says he has been, redness getting worse or no rashes present for one week and is getting worse for the past 2 days. He can walk however he has pain. There is more swelling. He has no fever or chills at this time. He was not taking any antibiotics as outpatient. He denies any nausea, vomiting, diarrhea or constipation. No problem with urination. Review of Systems Except as stated in HPI: all other systems reviewed are Neg Past Family Social History Past Medical History A. 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 obesity she had heart problems Father with morbid obesity and comorbidities related to it, unspecified medical problems. Paternal grandmother healthy at the age of 98 Social History Occasional alcohol a glass of wine with dinner, quit smoking 1959, denies drug use Physical Exam Vital Signs Vital Signs Date Time Temp Pulse Resp B/P Pulse Ox O2 Delivery O2 Flow Rate FiO2 04/11/17 17:54 70 20 178/83 97 Room Air 04/11/17 15:53 96 04/11/17 14:13 96 Room Air 04/11/17 12:25 98.3 82 15 158/66 97 Physical Exam GENERAL: This is a very pleasant 89 yo male, well-nourished, well-developed patient, in no apparent distress. SKIN: Palpable pedal pulses. R lower leg with erythema extending from R hallux to mid-calf with pitting edema present. Plantar R hallux with ulceration. No visible or palpable bone. No residual purulence post-I&D now wrapped, c/d/i. HEAD: Atraumatic. Normocephalic. No temporal or scalp tenderness. EYES: Pupils equal round and reactive. Extraocular motions intact. No scleral icterus. No injection or drainage. ENT: Nose without bleeding, purulent drainage or septal hematoma. Throat without erythema, tonsillar hypertrophy or exudate. Uvula midline. Airway patent. NECK: Trachea midline. No JVD or lymphadenopathy. Supple, nontender, no meningeal signs. CARDIOVASCULAR: Regular rate and rhythm without murmurs, gallops, or rubs. RESPIRATORY: Clear to auscultation. Breath sounds equal bilaterally. No wheezes , rales, or rhonchi. GASTROINTESTINAL: Abdomen soft, non-tender, nondistended. No hepato-splenomegaly , or palpable masses. No guarding. MUSCULOSKELETAL: Extremities without clubbing, cyanosis. No joint tenderness, effusion. No calf tenderness. Negative Homans sign bilaterally. NEUROLOGICAL: Awake and alert. Cranial nerves II through XII intact. Motor and sensory grossly within normal limits. Five out of 5 muscle strength in all muscle groups. Normal speech. Laboratory Laboratory Tests Test 04/11/17 04/11/17 14:00 14:34 Lactic Acid Level 1.0 White Blood Count 8.4 Red Blood Count 3.10 Hemoglobin 8.9 Hematocrit 26.4 Mean Corpuscular Volume 85.4 Mean Corpuscular Hemoglobin 28.7 Mean Corpuscular Hemoglobin 33.6 Concent Red Cell Distribution Width 14.2 Platelet Count 398 Mean Platelet Volume 6.6 Neutrophils (%) (Auto) 76.9 Lymphocytes (%) (Auto) 4.9 Monocytes (%) (Auto) 12.7 Eosinophils (%) (Auto) 5.4 Basophils (%) (Auto) 0.1 Neutrophils # (Auto) 6.4 Lymphocytes # (Auto) 0.4 Monocytes # (Auto) 1.1 Eosinophils # (Auto) 0.5 Basophils # (Auto) 0.0 CBC Comment DIFF FINAL Differential Comment Prothrombin Time 29.8 Prothromb Time International 2.6 Ratio Activated Partial 46.5 Thromboplast Time Sodium Level 138 Potassium Level 4.5 Chloride Level 103 Carbon Dioxide Level 27.6 Anion Gap 7 Blood Urea Nitrogen 37 Creatinine 2.60 Estimat Glomerular Filtration 23 Rate Random Glucose 138 Calcium Level 7.7 Phosphorus Level 3.6 Magnesium Level 2.2 Total Bilirubin 0.3 Aspartate Amino Transf 24 (AST/SGOT) Alanine Aminotransferase 29 (ALT/SGPT) Alkaline Phosphatase 113 Total Protein 6.5 Albumin 2.3 Date/Time Procedure Status Source Growth 04/11/17 14:05 Aerobic Blood Culture Received Blood Peripheral Pending 04/11/17 14:05 Anaerobic Blood Culture Received Blood Peripheral Pending Result Diagram: 04/11/17 1434 04/11/17 1434 Imaging Last Impressions Tibia/Fibula X-Ray 04/11/17 0000 Signed Impressions: Service Date/Time: Tuesday, April 11, 2017 14:48 - CONCLUSION: Soft tissue swelling and no definite fracture for technique. Marcel Pabon MD Foot X-Ray 04/11/17 0000 Signed Impressions: Service Date/Time: Tuesday, April 11, 2017 14:52 - CONCLUSION: Chronic changes and no evidence for acute fracture. Marcel Pabon MD Assessment and Plan Assessment and Plan Infection/cellulitis R foot/ankle/leg Start Zosyn /Vancomycin IV antibiotics Seen by Dr King podiatry, she will re-assess wound to determine progress Continue dressing changes as ordered by podiatry Wound Cultures pending Chronic medical problems appear stable at this time, continue home medications.A. fib on Coumadin, hypothyroidism, hyperlipidemia, delayed emptying of the bladder. DVT prophylaxis continue Coumadin, monitor INR. INR is therapeutic at this time. Discussed Condition With Patient, nurse, ED physician Physician Certification 2 Midnight Certification Type: Admission for Inpatient Services Order for Inpatient Services The services are ordered in accordance with Medicare regulations or non- Medicare payer requirements, as applicable. In the case of services not specified as inpatient-only, they are appropriately provided as inpatient services in accordance with the 2-midnight benchmark. Estimated LOS (days): 3 days is the estimated time the patient will need to remain in the hospital, assuming treatment plan goals are met and no additional complications. Post-Hospital Plan: Home Jamee Altman MD Apr 11, 2017 20:09
[2017-04-11] MEDS: SODIUM CHLORIDE 0.9% FLUSH 10 ML FLUSH IV FLUSH SCH (21:00)
[2017-04-11] MEDS: PIPERACIL-TAZO 2.25 GM PREMIX 50 ML IV SCH (21:56)
[2017-04-11] MEDS: DOCUSATE SODIUM 50 MG/SENNA 8.6 MG TAB PO SCH (22:00)
[2017-04-11] MEDS: ATORVASTATIN 40 MG TAB PO SCH (22:02)
[2017-04-12] VITALS: BP 176/69; PULSE 75; RESP 18; TEMP 97.5; O2SAT 93
[2017-04-12] MEDS: PIPERACIL-TAZO 2.25 GM PREMIX 50 ML IV SCH ×4 (03:05→20:31)
[2017-04-12 04:00] VITALS: BP 186/79; PULSE 80; RESP 18; TEMP 96.7; O2SAT 94
[2017-04-12] MEDS: SODIUM CHLOR 0.9% 1000 ML INJ 1,000 ML IV SCH ×3 (05:17→20:32)
[2017-04-12] MEDS: LEVOTHYROXINE SODIUM 100 MCG TAB PO SCH (05:22)
[2017-04-12 06:41] LABS: AUTOMATED NEUTROPHIL # 6.4 TH/MM3 (1.8-7.7); BASOPHIL % 0.2 % (0.0-2.0); EOSINOPHIL # 0.6 TH/MM3 (0-0.4); EOSINOPHIL % 6.7 % (0.0-4.0); HEMATOCRIT 29.7 % (39.0-51.0); HEMO FLAGS DIFF FINAL; LYMPH % 5.8 % (9.0-44.0); LYMPHOCYTE # 0.5 TH/MM3 (1.0-4.8); MEAN CORPUSCULAR HEMOGLOBIN 27.5 PG (27.0-34.0); MEAN CORPUSCULAR HGB CONC 31.6 % (32.0-36.0); MONO % 10.1 % (0.0-8.0); NEUT % 77.2 % (16.0-70.0); PLATELET COUNT 463 TH/MM3 (150-450); RED BLOOD COUNT 3.42 MIL/MM3 (4.50-5.90); RED CELL DISTRIBUTION WIDTH 14.7 % (11.6-17.2); WHITE BLOOD COUNT 8.3 TH/MM3 (4.0-11.0)
[2017-04-12 06:46] LABS: CHLORIDE 108 MEQ/L (98-107); POTASSIUM 4.8 MEQ/L (3.5-5.1); SODIUM (NA) 143 MEQ/L (136-145)
[2017-04-12 06:50] LABS: INTERNATIONAL NORMALIZED RATIO 2.6 RATIO; PROTHROMBIN TIME - PATIENT 29.8 SEC (9.8-11.6)
[2017-04-12 06:51] LABS: ANION GAP 8 MEQ/L (5-15); BICARBONATE 27.5 MEQ/L (21.0-32.0); BLOOD UREA NITROGEN 34 MG/DL (7-18); MAGNESIUM 2.1 MG/DL (1.5-2.5)
[2017-04-12 06:54] LABS: ALT (GPT) 28 U/L (12-78); AST (GOT) 26 U/L (15-37); GLOMERULAR FILTRATION RATE 24 ML/MIN (>89)
[2017-04-12 06:55] LABS: TOTAL BILIRUBIN ADULT 0.4 MG/DL (0.2-1.0)
[2017-04-12 06:56] LABS: ALKALINE PHOSPHATASE 113 U/L (45-117)
[2017-04-12 08:00] VITALS: BP 130/77; PULSE 81; RESP 18; TEMP 97.8; O2SAT 95
--- NOTE | 2017-04-12 08:11 | HHI.PR ---
Subjective Remarks In bed. Swelling and erythema of right leg improving. No fever or chills. Pain is controlled. No cp, sob, n/v/d/c. Eating well. Objective Vitals Vital Signs Date Time Temp Pulse Resp B/P Pulse Ox O2 Delivery O2 Flow Rate FiO2 04/12/17 04:00 96.7 80 18 186/79 94 04/12/17 00:00 97.5 75 18 176/69 93 04/11/17 20:00 96.2 76 20 164/79 97 04/11/17 20:00 97 21 04/11/17 17:54 70 20 178/83 97 Room Air 04/11/17 15:53 96 04/11/17 14:13 96 Room Air 04/11/17 12:25 98.3 82 15 158/66 97 I/O 04/11/17 04/11/17 04/11/17 04/12/17 04/12/17 04/12/17 07:00 15:00 23:00 07:00 15:00 23:00 Intake Total 350 ml 1703 ml Output Total 700 ml 2100 ml Balance -350 ml -397 ml Intake Oral 960 ml IV Total 350 ml 743 ml Output Urine Total 700 ml 2100 ml # Voids 1 1 Result Diagram: 04/12/17 0525 04/12/17 0525 Imaging Last Impressions Tibia/Fibula X-Ray 04/11/17 0000 Signed Impressions: Service Date/Time: Tuesday, April 11, 2017 14:48 - CONCLUSION: Soft tissue swelling and no definite fracture for technique. Marcel Pabon MD Foot X-Ray 04/11/17 0000 Signed Impressions: Service Date/Time: Tuesday, April 11, 2017 14:52 - CONCLUSION: Chronic changes and no evidence for acute fracture. Marcel Pabon MD Objective Remarks GENERAL: This is a very pleasant 89 yo male, well-nourished, well-developed patient, in no apparent distress. SKIN: Palpable pedal pulses. R lower leg with erythema extending from R hallux to mid-calf with pitting edema present. Plantar R hallux with ulceration. No visible or palpable bone. No residual purulence post-I&D now wrapped, c/d/i. CARDIOVASCULAR: Regular rate and rhythm without murmurs, gallops, or rubs. RESPIRATORY: Clear to auscultation. Breath sounds equal bilaterally. No wheezes , rales, or rhonchi. GASTROINTESTINAL: Abdomen soft, non-tender, nondistended. No hepato-splenomegaly , or palpable masses. No guarding. MUSCULOSKELETAL: Extremities without clubbing, cyanosis. No joint tenderness, effusion. No calf tenderness. Negative Homans sign bilaterally. NEUROLOGICAL: Awake and alert. Cranial nerves II through XII intact. Motor and sensory grossly within normal limits. Normal speech. A/P Assessment and Plan Infection/cellulitis R foot/ankle/leg Start Zosyn /Vancomycin IV antibiotics Seen by Dr King podiatry, she will re-assess wound to determine progress Continue dressing changes as ordered by podiatry Wound Cultures pending (obtained at Dr King office) Chronic medical problems appear stable at this time, continue home medications.A. fib on Coumadin, hypothyroidism, hyperlipidemia, delayed emptying of the bladder. DVT prophylaxis continue Coumadin, monitor INR. INR is therapeutic at this time. Discussed Condition With Patient, nurse Jamee Altman MD Apr 12, 2017 08:10
[2017-04-12] MEDS: METOPROLOL SUCCINATE 50 MG EXTENDED RELEASE TAB PO SCH (08:48)
[2017-04-12] MEDS: DOCUSATE SODIUM 50 MG/SENNA 8.6 MG TAB PO SCH ×2 (08:49→20:31)
[2017-04-12] MEDS: DIGOXIN 0.25 MG TAB PO SCH (08:49)
[2017-04-12] MEDS: amLODIPine BESYLATE 5 MG TAB PO SCH (08:49)
[2017-04-12] MEDS: LISINOPRIL 20 MG TAB PO SCH (08:49)
[2017-04-12] MEDS: SODIUM CHLORIDE 0.9% FLUSH 10 ML FLUSH IV FLUSH SCH ×2 (08:56→20:30)
[2017-04-12 12:00] VITALS: BP 128/79; PULSE 85; RESP 19; TEMP 97.7; O2SAT 96
[2017-04-12 16:00] VITALS: BP 167/79; PULSE 84; RESP 18; TEMP 97.9; O2SAT 95
[2017-04-12] MEDS: WARFARIN SOD 2.5 MG TAB PO SCH (16:50)
--- NOTE | 2017-04-12 19:00 | PD.ID.CON ---
History of Present Illness Service ID Consult Requested By Dr Altman Reason for Consult R LE cellulitis Primary Care Physician Zoe Chavez MD Diagnoses: History of Present Illness 89 yo male developped 5 days swelling nad redness and pain of RLE It started as R hallux He denies prior trama, denies h/o diatbeted or PVD He was seem by police matron, recommended conservative treatment Pt has no fever, no leukocytosis He was started on vancomycin and improved His creatinine is elevated @ 2.6 whch looks somewhatworse than baseline Review of Systems ROS Limitations: Poor Historian Past Family Social History Allergies: Coded Allergies: No Known Allergies (Verified , 04/11/17) Past Medical History A. 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 Active Ordered Medications Medications where reviewed in EMR Antibiotics Include: kasey almendarez Family History non contributoru to current condition Social History Occasional alcohol a glass of wine with dinner, quit smoking 1959, denies drug use Physical Exam Vital Signs Vital Signs Date Time Temp Pulse Resp B/P Pulse Ox O2 Delivery O2 Flow Rate FiO2 04/12/17 16:00 97.9 84 18 167/79 95 04/12/17 12:00 97.7 85 19 128/79 96 04/12/17 08:00 97.8 81 18 130/77 95 04/12/17 04:00 96.7 80 18 186/79 94 04/12/17 00:00 97.5 75 18 176/69 93 04/11/17 20:00 96.2 76 20 164/79 97 04/11/17 20:00 97 21 Physical Exam CONSTITUTIONAL/GENERAL: This is an adequately nourished patient, in no apparent distress. TUBES/LINES/DRAINS: SKIN: No jaundice, rashes, or lesions. . Skin temperature appropriate. Not diaphoretic. HEAD: Atraumatic. Normocephalic. EYES: Pupils equal and round and reactive. Extraocular motions intact. No scleral icterus. No injection or drainage. Fundi not examined. ENT: Hearing grossly normal. Nose without bleeding or purulent drainage. Throat without visible erythema, exudates, masses, or lesions. NECK: Trachea midline. Supple, nontender. No palpable thyroid enlargement or nodularity. CARDIOVASCULAR: Regular rate and rhythm without murmurs, gallops, or rubs. No JVD. Peripheral pulses symmetric. RESPIRATORY/CHEST: Symmetric, unlabored respirations. Clear to auscultation. Breath sounds equal bilaterally. No wheezes, rales, or rhonchi. GASTROINTESTINAL: Abdomen soft, non-tender, nondistended. No hepato-splenomegaly , or palpable masses. No guarding. Bowel sounds present. GENITOURINARY: Without palpable bladder distension. MUSCULOSKELETAL: Extremities without clubbing, cyanosis, . No mottling or clubbing. STATUS LOCALIS R hallux with edema, erythema, minimal drainage serosan on the dresisng Edema and erythema is noted involving R foot , ankle no lympahgitis enlarged ipsilateral inguinal lymph nodule LYMPHATICS: No palpable cervical or supraclavicular adenopathy.lear speechognitively sharp. Moves all extremities. PSYCHIATRIC: No obvious anxiety/depression. no apparent hallucinations or other psychotic thought process. flat affect Laboratory Laboratory Tests Test 04/12/17 05:25 White Blood Count 8.3 Red Blood Count 3.42 Hemoglobin 9.4 Hematocrit 29.7 Mean Corpuscular Volume 87.0 Mean Corpuscular Hemoglobin 27.5 Mean Corpuscular Hemoglobin 31.6 Concent Red Cell Distribution Width 14.7 Platelet Count 463 Mean Platelet Volume 7.4 Neutrophils (%) (Auto) 77.2 Lymphocytes (%) (Auto) 5.8 Monocytes (%) (Auto) 10.1 Eosinophils (%) (Auto) 6.7 Basophils (%) (Auto) 0.2 Neutrophils # (Auto) 6.4 Lymphocytes # (Auto) 0.5 Monocytes # (Auto) 0.8 Eosinophils # (Auto) 0.6 Basophils # (Auto) 0.0 CBC Comment DIFF FINAL Differential Comment Prothrombin Time 29.8 Prothromb Time International 2.6 Ratio Sodium Level 143 Potassium Level 4.8 Chloride Level 108 Carbon Dioxide Level 27.5 Anion Gap 8 Blood Urea Nitrogen 34 Creatinine 2.50 Estimat Glomerular Filtration 24 Rate Random Glucose 108 Calcium Level 7.5 Magnesium Level 2.1 Total Bilirubin 0.4 Aspartate Amino Transf 26 (AST/SGOT) Alanine Aminotransferase 28 (ALT/SGPT) Alkaline Phosphatase 113 Total Protein 6.4 Albumin 2.3 Date/Time Procedure Status Source Growth 04/11/17 14:05 Aerobic Blood Culture - Preliminary Resulted Blood Peripheral NO GROWTH IN 1 DAY 04/11/17 14:05 Anaerobic Blood Culture - Preliminary Resulted Blood Peripheral NO GROWTH IN 1 DAY Result Diagram: 04/12/17 0525 04/12/17 0525 Imaging Last Impressions Tibia/Fibula X-Ray 04/11/17 0000 Signed Impressions: Service Date/Time: Tuesday, April 11, 2017 14:48 - CONCLUSION: Soft tissue swelling and no definite fracture for technique. Marcel Pabon MD Foot X-Ray 04/11/17 0000 Signed Impressions: Service Date/Time: Tuesday, April 11, 2017 14:52 - CONCLUSION: Chronic changes and no evidence for acute fracture. Marcel Pabon MD Assessment and Plan Assessment and Plan R LE cellulits Port of entry R hallux, clx P (taken in office by police matron) cont zosyn cont vancomycin anticipate d/c on po abx monitor closely renal fnx Sofie Hawkins MD Apr 12, 2017 19:00
[2017-04-12 20:00] VITALS: BP 165/70; PULSE 72; RESP 20; TEMP 96.5; O2SAT 92
[2017-04-12] MEDS: ATORVASTATIN 40 MG TAB PO SCH (20:31)
[2017-04-13] VITALS (7 sets, daily range): BP systolic 130–191; BP diastolic 76–90; PULSE 65–89; RESP 16–18; TEMP 96–98.1; O2SAT 91–95
[2017-04-13] MEDS: PIPERACIL-TAZO 2.25 GM PREMIX 50 ML IV SCH ×4 (02:18→21:11)
[2017-04-13] MEDS: VANCOMYCIN INJ 1,000 MG in SODIUM CHLOR 0.9% 250 ML INJ 250 ML IV SCH (03:44)
[2017-04-13] MEDS: SODIUM CHLOR 0.9% 1000 ML INJ 1,000 ML IV SCH ×3 (03:50→21:12)
[2017-04-13] MEDS: LEVOTHYROXINE SODIUM 100 MCG TAB PO SCH (06:10)
[2017-04-13 06:16] LABS: INTERNATIONAL NORMALIZED RATIO 3.2 RATIO; PROTHROMBIN TIME - PATIENT 37.4 SEC (9.8-11.6)
[2017-04-13] MEDS: SODIUM CHLORIDE 0.9% FLUSH 10 ML FLUSH IV FLUSH SCH ×2 (09:00→21:00)
[2017-04-13] MEDS: METOPROLOL SUCCINATE 50 MG EXTENDED RELEASE TAB PO SCH (09:10)
[2017-04-13] MEDS: DIGOXIN 0.25 MG TAB PO SCH (09:10)
[2017-04-13] MEDS: amLODIPine BESYLATE 5 MG TAB PO SCH (09:10)
[2017-04-13] MEDS: DOCUSATE SODIUM 50 MG/SENNA 8.6 MG TAB PO SCH ×2 (09:10→21:11)
[2017-04-13] MEDS: LISINOPRIL 20 MG TAB PO SCH (09:11)
--- NOTE | 2017-04-13 11:42 | HHI.PR ---
Subjective Remarks At the margin of the bed. Says he is able to ambulate, he has less pain his leg. Swelling or redness is improving. Was seen by podiatry in the morning she recommends discharge on Monday. Patient denies any fever or chills. No nausea, vomiting, diarrhea or constipation. He is tolerating antibiotics well. Eating well Objective Vitals Vital Signs Date Time Temp Pulse Resp B/P Pulse Ox O2 Delivery O2 Flow Rate FiO2 04/13/17 08:00 97.6 69 18 191/77 95 04/13/17 02:18 94 21 04/13/17 00:00 96.0 78 18 167/77 91 04/12/17 20:00 96.5 72 20 165/70 92 04/12/17 16:00 97.9 84 18 167/79 95 04/12/17 12:00 97.7 85 19 128/79 96 I/O 04/12/17 04/12/17 04/12/17 04/13/17 04/13/17 04/13/17 07:00 15:00 23:00 07:00 15:00 23:00 Intake Total 1703 ml 1400 ml 120 ml Output Total 2100 ml 500 ml 1400 ml Balance -397 ml 900 ml -1280 ml Intake Oral 960 ml 120 ml IV Total 743 ml 1400 ml Output Urine Total 2100 ml 500 ml 1400 ml Result Diagram: 04/12/17 0525 04/12/17 0525 Imaging Last Impressions Tibia/Fibula X-Ray 04/11/17 0000 Signed Impressions: Service Date/Time: Tuesday, April 11, 2017 14:48 - CONCLUSION: Soft tissue swelling and no definite fracture for technique. Marcel Pabon MD Foot X-Ray 04/11/17 0000 Signed Impressions: Service Date/Time: Tuesday, April 11, 2017 14:52 - CONCLUSION: Chronic changes and no evidence for acute fracture. Marcel Pabon MD Objective Remarks GENERAL: This is a very pleasant 89 yo male, well-nourished, well-developed patient, in no apparent distress. SKIN: Palpable pedal pulses. R lower leg with erythema extending from R hallux to mid-calf with pitting edema present. Plantar R hallux with ulceration. No visible or palpable bone. No residual purulence post-I&D now wrapped, c/d/i. CARDIOVASCULAR: Regular rate and rhythm without murmurs, gallops, or rubs. RESPIRATORY: Clear to auscultation. Breath sounds equal bilaterally. No wheezes , rales, or rhonchi. GASTROINTESTINAL: Abdomen soft, non-tender, nondistended. No hepato-splenomegaly , or palpable masses. No guarding. MUSCULOSKELETAL: Extremities without clubbing, cyanosis. No joint tenderness, effusion. No calf tenderness. Negative Homans sign bilaterally. NEUROLOGICAL: Awake and alert. Cranial nerves II through XII intact. Motor and sensory grossly within normal limits. Normal speech. A/P Assessment and Plan Infection/cellulitis R foot/ankle/leg Start Zosyn /Vancomycin IV antibiotics Seen by Dr King podiatry, she will re-assess wound to determine progress Continue dressing changes as ordered by podiatry Wound Cultures pending (obtained at Dr King office) Chronic medical problems appear stable at this time, continue home medications.A. fib on Coumadin, hypothyroidism, hyperlipidemia, delayed emptying of the bladder. DVT prophylaxis continue Coumadin, monitor INR. INR is therapeutic at this time. Discussed Condition With Patient, nurse Discharge Monday per podiatry Jamee Altman MD Apr 13, 2017 11:42
--- NOTE | 2017-04-13 13:19 | PD.POD ---
Subjective Podiatric Problems R leg/foot cellulitis Past Med/Surg/Social History Social History Smoking Status: Former Smoker Objective Vital Signs Vital Signs Date Time Temp Pulse Resp B/P Pulse Ox O2 Delivery O2 Flow Rate FiO2 04/13/17 08:00 97.6 69 18 191/77 95 04/13/17 02:18 94 21 04/13/17 00:00 96.0 78 18 167/77 91 04/12/17 20:00 96.5 72 20 165/70 92 04/12/17 16:00 97.9 84 18 167/79 95 Coded Allergies: No Known Allergies (Verified , 04/11/17) Medications and IVs Current Medications Medications (Trade) Dose Ordered Sig/Jimy Route Start Time Stop Time Status Last Admin (NS 1000 ml Inj) 1,000 ml @ 100 mls/hr Q10H IV 04/11/17 15:15 04/13/17 03:50 (NS Flush) 2 ml UNSCH PRN IV FLUSH 04/11/17 15:15 (NS Flush) 2 ml BID IV FLUSH 04/11/17 21:00 04/12/17 20:30 (Tylenol) 650 mg Q4H PRN PO 04/11/17 15:15 (Zofran Inj) 4 mg Q6H PRN IVP 04/11/17 15:15 (Restoril) 15 mg HS PRN PO 04/11/17 15:15 (Pilar-Colace) 1 tab BID PO 04/11/17 21:00 04/13/17 09:10 (Milk Of Magnesia Liq) 30 ml Q12H PRN PO 04/11/17 15:15 (Senokot) 17.2 mg Q12H PRN PO 04/11/17 15:15 (Dulcolax Supp) 10 mg DAILY PRN RECTAL 04/11/17 15:15 (Lactulose Liq) 30 ml DAILY PRN PO 04/11/17 15:15 (Norvasc) 5 mg DAILY PO 04/12/17 09:00 04/13/17 09:10 (Lipitor) 40 mg HS PO 04/11/17 21:00 04/12/17 20:31 (Lanoxin) 0.25 mg DAILY PO 04/12/17 09:00 04/13/17 09:10 (Synthroid) 100 mcg DAILY@06 PO 04/12/17 06:00 04/13/17 06:10 (Coumadin) 2.5 mg MoTuWeThFrSa@16 PO 04/11/17 18:00 Hold 04/12/17 16:50 (Coumadin) 5 mg Diaz@16 PO 04/16/17 16:00 (Prinivil) 40 mg DAILY PO 04/12/17 09:00 04/13/17 09:11 Metoprolol Succinate 100 mg 100 mg DAILY PO 04/12/17 09:00 04/13/17 09:10 Piperacillin Sod/ Tazobactam Sod 50 ml @ 100 mls/hr Q6H IV 04/11/17 20:00 04/13/17 12:26 Pharmacy Profile Note 0 ml @ 0 mls/hr UNSCH OTHER 04/11/17 15:30 Vancomycin HCl 1000 mg/Sodium Chloride 250 ml @ 250 mls/hr Q36H IV 04/13/17 03:00 04/13/17 03:44 (Coumadin Consult Pharmacy) 0 ml @ 0 mls/hr UNSCH OTHER 04/11/17 15:30 Miscellaneous Information SPECIFIC LAB TO BE DRAWN:VANCO TROUGH DATE TO... ONCE ONCE .XX 04/14/17 14:45 04/14/17 14:46 Other Results Laboratory Tests Test 04/11/17 04/11/17 04/12/17 04/13/17 14:00 14:34 05:25 05:37 Lactic Acid Level 1.0 mmol/L Activated Partial 46.5 SEC Thromboplast Time Phosphorus Level 3.6 MG/DL White Blood Count 8.3 TH/MM3 Red Blood Count 3.42 MIL/MM3 Hemoglobin 9.4 GM/DL Hematocrit 29.7 % Mean Corpuscular Volume 87.0 FL Mean Corpuscular Hemoglobin 27.5 PG Mean Corpuscular Hemoglobin 31.6 % Concent Red Cell Distribution Width 14.7 % Platelet Count 463 TH/MM3 Mean Platelet Volume 7.4 FL Neutrophils (%) (Auto) 77.2 % Lymphocytes (%) (Auto) 5.8 % Monocytes (%) (Auto) 10.1 % Eosinophils (%) (Auto) 6.7 % Basophils (%) (Auto) 0.2 % Neutrophils # (Auto) 6.4 TH/MM3 Lymphocytes # (Auto) 0.5 TH/MM3 Monocytes # (Auto) 0.8 TH/MM3 Eosinophils # (Auto) 0.6 TH/MM3 Basophils # (Auto) 0.0 TH/MM3 CBC Comment DIFF FINAL Differential Comment Sodium Level 143 MEQ/L Potassium Level 4.8 MEQ/L Chloride Level 108 MEQ/L Carbon Dioxide Level 27.5 MEQ/L Anion Gap 8 MEQ/L Blood Urea Nitrogen 34 MG/DL Creatinine 2.50 MG/DL Estimat Glomerular Filtration 24 ML/MIN Rate Random Glucose 108 MG/DL Calcium Level 7.5 MG/DL Magnesium Level 2.1 MG/DL Total Bilirubin 0.4 MG/DL Aspartate Amino Transf 26 U/L (AST/SGOT) Alanine Aminotransferase 28 U/L (ALT/SGPT) Alkaline Phosphatase 113 U/L Total Protein 6.4 GM/DL Albumin 2.3 GM/DL Prothrombin Time 37.4 SEC Prothromb Time International 3.2 RATIO Ratio Physical Exam Remarks R plantar hallux with much improvement. Wound very small and no purulence. Erythema is receding, but still present. Erythema and edema to lower leg receding, but still present. Assessment & Plan A/P Cellulitis R foot/leg Resolving with IV antibiotics Continue IV antiobiotics. Will reassess on Monday morning to see if patient ok to be discharged then. Continue dressing R foot as ordered. Clinic culture results should be in by tomorrow. Will document those as they arrive to guide d/c antibiotics. Elmer Zee DPM Apr 13, 2017 13:19
[2017-04-13] MEDS: ATORVASTATIN 40 MG TAB PO SCH (21:11)
[2017-04-14] VITALS (8 sets, daily range): BP systolic 155–186; BP diastolic 64–74; PULSE 68–82; RESP 16–19; TEMP 95.1–97.2; O2SAT 89–98
[2017-04-14] MEDS: PIPERACIL-TAZO 2.25 GM PREMIX 50 ML IV SCH ×4 (01:34→21:37)
[2017-04-14] MEDS: TEMAZEPAM 15 MG CAP PO PRN ×2 (01:37→21:36)
[2017-04-14] MEDS: LEVOTHYROXINE SODIUM 100 MCG TAB PO SCH (05:56)
[2017-04-14 06:46] LABS: INTERNATIONAL NORMALIZED RATIO 3.5 RATIO; PROTHROMBIN TIME - PATIENT 40.6 SEC (9.8-11.6)
[2017-04-14] MEDS: LISINOPRIL 20 MG TAB PO SCH (08:53)
[2017-04-14] MEDS: amLODIPine BESYLATE 5 MG TAB PO SCH (08:53)
[2017-04-14] MEDS: METOPROLOL SUCCINATE 50 MG EXTENDED RELEASE TAB PO SCH (08:53)
[2017-04-14] MEDS: DOCUSATE SODIUM 50 MG/SENNA 8.6 MG TAB PO SCH ×2 (08:53→21:00)
[2017-04-14] MEDS: DIGOXIN 0.25 MG TAB PO SCH (08:53)
[2017-04-14] MEDS: SODIUM CHLORIDE 0.9% FLUSH 10 ML FLUSH IV FLUSH SCH ×2 (08:55→21:00)
--- NOTE | 2017-04-14 11:16 | HHI.PR ---
Subjective Remarks Is at the margin of the bed having breakfast. Says no nausea or vomiting. Has no fever or chills overnight. Denies chest pain or shortness of breath he has no pain at this time. Right leg edema and erythema is improved. Objective Vitals Vital Signs Date Time Temp Pulse Resp B/P Pulse Ox O2 Delivery O2 Flow Rate FiO2 04/14/17 09:04 96.1 68 19 171/70 93 04/14/17 00:00 97.2 71 18 155/71 90 04/13/17 20:02 94 21 04/13/17 20:00 96.9 89 18 167/90 94 04/13/17 16:00 97.7 69 16 130/76 95 04/13/17 12:00 98.1 65 17 145/79 94 I/O 04/13/17 04/13/17 04/13/17 04/14/17 04/14/17 04/14/17 07:00 15:00 23:00 07:00 15:00 23:00 Intake Total 120 ml 1140 ml 240 ml Output Total 1400 ml 400 ml 300 ml Balance -1280 ml 740 ml -60 ml Intake Oral 120 ml 1140 ml 240 ml Output Urine Total 1400 ml 400 ml 300 ml # Bowel Movements 2 3 Result Diagram: 04/12/17 0525 04/14/17 0530 Imaging Last Impressions Tibia/Fibula X-Ray 04/11/17 0000 Signed Impressions: Service Date/Time: Tuesday, April 11, 2017 14:48 - CONCLUSION: Soft tissue swelling and no definite fracture for technique. Marcel Pabon MD Foot X-Ray 04/11/17 0000 Signed Impressions: Service Date/Time: Tuesday, April 11, 2017 14:52 - CONCLUSION: Chronic changes and no evidence for acute fracture. Marcel Pabon MD Objective Remarks GENERAL: This is a very pleasant 89 yo male, well-nourished, well-developed patient, in no apparent distress. SKIN: Palpable pedal pulses. R lower leg with erythema extending from R hallux to mid-calf with pitting edema present. Plantar R hallux with ulceration. No visible or palpable bone. No residual purulence post-I&D now wrapped, c/d/i. CARDIOVASCULAR: Regular rate and rhythm without murmurs, gallops, or rubs. RESPIRATORY: Clear to auscultation. Breath sounds equal bilaterally. No wheezes , rales, or rhonchi. GASTROINTESTINAL: Abdomen soft, non-tender, nondistended. No hepato-splenomegaly , or palpable masses. No guarding. MUSCULOSKELETAL: Extremities without clubbing, cyanosis. No joint tenderness, effusion. No calf tenderness. Negative Homans sign bilaterally. NEUROLOGICAL: Awake and alert. Cranial nerves II through XII intact. Motor and sensory grossly within normal limits. Normal speech. A/P Assessment and Plan Infection/cellulitis R foot/ankle/leg Start Zosyn /Vancomycin IV antibiotics Seen by Dr King podiatry, she will re-assess wound to determine progress Continue dressing changes as ordered by podiatry Wound Cultures pending (obtained at Dr King office) Chronic medical problems appear stable at this time, continue home medications.A. fib on Coumadin, hypothyroidism, hyperlipidemia, delayed emptying of the bladder. DVT prophylaxis continue Coumadin, monitor INR. INR is therapeutic at this time. Discussed Condition With Patient, nurse Discharge Monday per podiatry. To follow-up with Dr. Alexander his podiatry as outpatient on Monday in her office Jamee Altman MD Apr 14, 2017 11:16
[2017-04-14] MEDS: SODIUM CHLOR 0.9% 1000 ML INJ 1,000 ML IV SCH ×2 (13:15→21:41)
[2017-04-14] MEDS ORDERED: PHARMACY ORDERED LAB ONE (14:45)
[2017-04-14] MEDS: VANCOMYCIN INJ 1,000 MG in SODIUM CHLOR 0.9% 250 ML INJ 250 ML IV SCH (15:42)
[2017-04-14] MEDS: WARFARIN SOD 2.5 MG TAB PO SCH (18:06)
[2017-04-14] MEDS: ATORVASTATIN 40 MG TAB PO SCH (21:36)
[2017-04-15] VITALS (8 sets, daily range): BP systolic 168–181; BP diastolic 66–86; PULSE 69–78; RESP 18–22; TEMP 95.3–97.2; O2SAT 90–97
[2017-04-15] MEDS: PIPERACIL-TAZO 2.25 GM PREMIX 50 ML IV SCH ×3 (00:31→13:35)
[2017-04-15] MEDS: LEVOTHYROXINE SODIUM 100 MCG TAB PO SCH (06:13)
[2017-04-15] MEDS: DOCUSATE SODIUM 50 MG/SENNA 8.6 MG TAB PO SCH ×2 (07:47→21:06)
[2017-04-15] MEDS: amLODIPine BESYLATE 5 MG TAB PO SCH (08:23)
[2017-04-15] MEDS: LISINOPRIL 20 MG TAB PO SCH (08:23)
[2017-04-15] MEDS: DIGOXIN 0.25 MG TAB PO SCH (08:23)
[2017-04-15] MEDS: METOPROLOL SUCCINATE 50 MG EXTENDED RELEASE TAB PO SCH (08:24)
[2017-04-15] MEDS: SODIUM CHLORIDE 0.9% FLUSH 10 ML FLUSH IV FLUSH SCH ×2 (08:26→21:07)
[2017-04-15] MEDS: SODIUM CHLOR 0.9% 1000 ML INJ 1,000 ML IV SCH (08:27)
[2017-04-15 09:12] LABS: INTERNATIONAL NORMALIZED RATIO 3.7 RATIO; PROTHROMBIN TIME - PATIENT 43.8 SEC (9.8-11.6)
[2017-04-15] MEDS ORDERED: BUMETANIDE INJ 1 MG/4 ML VIAL IV PUSH ONE ×2 (13:30→17:45)
--- NOTE | 2017-04-15 13:31 | HHI.DCPOC ---
Discharge Care Plan Diagnosis: (1) Cellulitis Goals to Promote Your Health * To prevent worsening of your condition and complications * To maintain your health at the optimal level Directions to Meet Your Goals Take your medications as prescribed Follow your dietary instruction Follow activity as directed Keep your appointments as scheduled Take your immunizations and boosters as scheduled If your symptoms worsen call your PCP, if no PCP go to Urgent Care Center or Emergency Room Smoking is Dangerous to Your Health. Avoid second hand smoke Call the 24-hour hour crisis hotline for domestic abuse at Remedios Blevins MD Apr 15, 2017 13:31
--- NOTE | 2017-04-15 13:36 | HHI.PR ---
Subjective Remarks Patient seen and evaluated today in follow-up for right foot cellulitis. Discharge plans discussed with patient and with spouse as well as Tanya RN. I also discussed patient's overall plan of care with podiatry recommended oral antibiotics with outpatient follow-up given the improving nature of the infection. Patient with some short of breath and hypoxemia overnight. Crackles in the bases this morning Objective Vitals Vital Signs Date Time Temp Pulse Resp B/P Pulse Ox O2 Delivery O2 Flow Rate FiO2 04/15/17 12:00 95.3 70 21 179/86 94 04/15/17 08:00 96.9 72 22 176/73 97 04/15/17 07:08 94 Nasal Cannula 2.00 04/15/17 04:00 97.2 74 20 175/73 96 04/15/17 00:00 96.5 72 18 170/66 90 04/14/17 20:19 94 Nasal Cannula 1.00 04/14/17 20:17 89 21 04/14/17 20:00 97.0 72 16 186/71 90 04/14/17 17:09 96.1 76 19 165/74 94 I/O 04/14/17 04/14/17 04/14/17 04/15/17 04/15/17 04/15/17 07:00 15:00 23:00 07:00 15:00 23:00 Intake Total 240 ml 1070 ml 180 ml Output Total 300 ml 240 ml 300 ml Balance -60 ml 830 ml -120 ml Intake Oral 240 ml 1070 ml 180 ml Output Urine Total 300 ml 240 ml 300 ml # Voids 4 # Bowel Movements 3 1 1 Result Diagram: 04/12/17 0525 04/14/17 0530 Imaging Last Impressions Tibia/Fibula X-Ray 04/11/17 0000 Signed Impressions: Service Date/Time: Tuesday, April 11, 2017 14:48 - CONCLUSION: Soft tissue swelling and no definite fracture for technique. Marcel Pabon MD Foot X-Ray 04/11/17 0000 Signed Impressions: Service Date/Time: Tuesday, April 11, 2017 14:52 - CONCLUSION: Chronic changes and no evidence for acute fracture. Marcel Pabon MD Objective Remarks GENERAL: This is a well-nourished, well-developed patient, in no apparent distress. CARDIOVASCULAR: Regular rate and rhythm without murmurs, gallops, or rubs. RESPIRATORY: bibasilar crackles. No wheezes, rales, o of r rhonchi appreciated GASTROINTESTINAL: Abdomen soft, non-tender, nondistended. Normal active bowel sounds MUSCULOSKELETAL: Right great toe minimal erythema with dry skin on the toe plantar surface. Extremities without clubbing, cyanosis, or edema. NEURO: Alert & Oriented x4 to person, place, time, situation. Moves all ext x4 A/P Problem List: (1) Cellulitis ICD Code: L03.90 Status: Acute Plan: Overall improved per patient and her spouse Improved on exam objectively Discussed with podiatry recommend outpatient follow-up with oral antibiotics (2) SOB (shortness of breath) ICD Code: R06.02 Status: Acute Plan: Likely volume overload, we'll try IV Bumex and follow urine output Oxygen as needed Chest x-ray pending Echocardiogram 2014 shows preserved EF of 65% Problem Qualifiers (1) Cellulitis: Qualified Code: L03.115 - Cellulitis of right lower extremity Remedios Blevins MD Apr 15, 2017 13:36
--- NOTE | 2017-04-15 15:01 | RADRPT ---
EXAM DATE/TIME: 04/15/2017 14:29 [facility] COMPARISON: CHEST SINGLE AP, November 03, 2014, 6:12. INDICATIONS : Short of breath MEDICAL HISTORY : Cardiovascular disease. Hypertension SURGICAL HISTORY : Appendectomy. heart valve ENCOUNTER: Subsequent ACUITY: 4 - 6 days PAIN SCORE: 0/10 LOCATION: Bilateral chest FINDINGS: Large right pleural effusion is seen. There is a tiny left pleural effusion. Right lung base consolid ation and/or compressive collapse is seen. There is chronic sclerosis of the right proximal humerus b enign in appearance not changed since 2014. Heart and mediastinum are unremarkable for technique. CONCLUSION: There is a tiny left pleural effusion, large right pleural effusion and compressive collapse and/or c onsolidation right lung base. Marcel Pabon MD on April 15, 2017 at 14:59 Board Certified Radiologist. This report was verified electronically.
--- NOTE | 2017-04-15 20:42 | HHI.IDPN ---
Subjective Subjective Remarks no co OOB in a chair on RA afebrile Antibiotics vanco tanesha Allergies: Coded Allergies: No Known Allergies (Verified , 04/11/17) Objective . Vital Signs Date Time Temp Pulse Resp B/P Pulse Ox O2 Delivery O2 Flow Rate FiO2 04/15/17 16:00 96.4 69 22 181/81 96 04/15/17 12:00 95.3 70 21 179/86 94 04/15/17 08:00 96.9 72 22 176/73 97 04/15/17 07:08 94 Nasal Cannula 2.00 04/15/17 04:00 97.2 74 20 175/73 96 04/15/17 00:00 96.5 72 18 170/66 90 04/14/17 04/14/17 04/15/17 15:00 23:00 07:00 Intake Total 1070 ml 180 ml Output Total 240 ml 300 ml Balance 830 ml -120 ml Intake Oral 1070 ml 180 ml Output Urine Total 240 ml 300 ml # Voids 4 # Bowel Movements 1 1 . Laboratory Tests Test 04/14/17 05:30 Creatinine 2.50 MG/DL Estimat Glomerular Filtration 24 ML/MIN Rate Imaging Last Impressions Chest X-Ray 04/15/17 0000 Signed Impressions: Service Date/Time: Saturday, April 15, 2017 14:29 - CONCLUSION: There is a tiny left pleural effusion, large right pleural effusion and compressive collapse and/or consolidation right lung base. Marcel Pabon MD Tibia/Fibula X-Ray 04/11/17 0000 Signed Impressions: Service Date/Time: Tuesday, April 11, 2017 14:48 - CONCLUSION: Soft tissue swelling and no definite fracture for technique. Marcel Pabon MD Foot X-Ray 04/11/17 0000 Signed Impressions: Service Date/Time: Tuesday, April 11, 2017 14:52 - CONCLUSION: Chronic changes and no evidence for acute fracture. Marcel Pabon MD Physical Exam CONSTITUTIONAL/GENERAL: This is an adequately nourished patient, in no apparent distress. TUBES/LINES/DRAINS: SKIN: No jaundice, rashes, or lesions. . Skin temperature appropriate. Not diaphoretic. ENT: Hearing grossly normal. Nose without bleeding or purulent drainage. Throat without visible erythema, exudates, masses, or lesions. NECK: Trachea midline. no JVD CARDIOVASCULAR: Regular rate and rhythm without murmurs, gallops, or rubs. No JVD. Peripheral pulses symmetric. RESPIRATORY/CHEST: Symmetric, unlabored respirations. Clear to auscultation. Breath sounds markedly diminished R base . No wheezes, rales, or rhonchi. GASTROINTESTINAL: Abdomen soft, non-tender, nondistended. Bowel sounds present. MUSCULOSKELETAL: Extremities without clubbing, cyanosis, . No mottling or clubbing. STATUS LOCALIS R foot with much improved edema, erythema, R hallux minimal drainage serosan on the dresisng Minimal residual edema, erytheam d R ankle, cruz no lympahgitis NEURO: alert awake, non focal; clear speech PSYCHIATRIC: No obvious anxiety/depression. no apparent hallucinations or other psychotic thought process. 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 CKD, creatinine stable dc zosyn dc vancomycin start po Keflex, doxycyline to complete 14 days of total abx tx Sofie Hawkins MD Apr 15, 2017 20:41
[2017-04-15] MEDS: DOXYCYCLINE HYCLATE 100 MG TAB PO SCH (21:06)
[2017-04-15] MEDS: CEPHALEXIN MONOHYDRATE 500 MG CAP PO SCH (21:06)
[2017-04-15] MEDS: ATORVASTATIN 40 MG TAB PO SCH (21:06)
[2017-04-16] VITALS (8 sets, daily range): BP systolic 156–198; BP diastolic 72–86; PULSE 71–87; RESP 18–20; TEMP 96.2–97.9; O2SAT 91–98
[2017-04-16] MEDS ORDERED: PHARMACY ORDERED LAB ONE (02:45)
[2017-04-16] MEDS: LEVOTHYROXINE SODIUM 100 MCG TAB PO SCH (05:58)
[2017-04-16] MEDS ORDERED: CEPH500C PO (07:28)
[2017-04-16] MEDS ORDERED: DOXY100T PO (07:28)
[2017-04-16 07:29] LABS: INTERNATIONAL NORMALIZED RATIO 3.9 RATIO; PROTHROMBIN TIME - PATIENT 46.2 SEC (9.8-11.6)
[2017-04-16] MEDS: DOXYCYCLINE HYCLATE 100 MG TAB PO SCH ×2 (08:37→20:29)
[2017-04-16] MEDS: DIGOXIN 0.25 MG TAB PO SCH (08:37)
[2017-04-16] MEDS: CEPHALEXIN MONOHYDRATE 500 MG CAP PO SCH ×4 (08:38→20:29)
[2017-04-16] MEDS: METOPROLOL SUCCINATE 50 MG EXTENDED RELEASE TAB PO SCH (08:38)
[2017-04-16] MEDS: LISINOPRIL 20 MG TAB PO SCH (08:38)
[2017-04-16] MEDS: amLODIPine BESYLATE 5 MG TAB PO SCH (08:38)
[2017-04-16] MEDS: SODIUM CHLORIDE 0.9% FLUSH 10 ML FLUSH IV FLUSH SCH ×2 (08:39→20:29)
[2017-04-16] MEDS: DOCUSATE SODIUM 50 MG/SENNA 8.6 MG TAB PO SCH ×2 (08:39→20:29)
--- NOTE | 2017-04-16 09:37 | RADRPT ---
EXAM DATE/TIME: 04/16/2017 09:13 [facility] COMPARISON: CHEST SINGLE AP, April 15, 2017, 14:29. INDICATIONS : Pleural effusion, short of breath MEDICAL HISTORY : Cardiovascular disease. Hypertension SURGICAL HISTORY : Appendectomy. heart valve ENCOUNTER: Subsequent ACUITY: 4 - 6 days PAIN SCORE: 0/10 LOCATION: Bilateral chest FINDINGS: The right hemithorax is partially opacified again indicative of a moderate to large pleural effusion. There is minimal blunting of the left costophrenic angle. There is no evidence of pulmonary edema. Heart is normal in size. CONCLUSION: Partial opacification the right hemithorax consistent with a moderate to large pleural effusion. Small left effusion No significant change compared to prior day Ryne Osmani Blanc MD on April 16, 2017 at 9:33 Board Certified Radiologist. This report was verified electronically.
--- NOTE | 2017-04-16 09:54 | HHI.PR ---
Subjective Remarks Hypoxemia secondary to pleural effusion. Blood pressure also elevated. Patient and 1% on 2 L overnight. Antibiotics adjusted per infectious disease for right toe cellulitis. Discussed with patient regarding findings chest x-ray Objective Vitals Vital Signs Date Time Temp Pulse Resp B/P Pulse Ox O2 Delivery O2 Flow Rate FiO2 04/16/17 08:23 97.9 78 19 198/85 94 04/16/17 07:49 96 21 04/16/17 04:00 179/86 04/16/17 00:00 97.6 84 18 184/79 91 04/15/17 20:00 96.0 78 20 168/70 95 04/15/17 19:27 92 21 04/15/17 16:00 96.4 69 22 181/81 96 04/15/17 12:00 95.3 70 21 179/86 94 I/O 04/15/17 04/15/17 04/15/17 04/16/17 04/16/17 04/16/17 06:59 14:59 22:59 06:59 14:59 22:59 Intake Total 180 ml 720 ml 180 ml Output Total 300 ml 400 ml 375 ml Balance -120 ml -400 ml 345 ml 180 ml Intake Oral 180 ml 720 ml 180 ml IV Total 0 ml 0 ml Output Urine Total 300 ml 400 ml 375 ml # Voids 1 1 # Bowel Movements 1 1 0 Result Diagram: 04/12/17 0525 04/16/17 0701 Imaging Last Impressions Chest X-Ray 04/16/17 0000 Signed Impressions: Service Date/Time: Sunday, April 16, 2017 09:13 - CONCLUSION: Partial opacification the right hemithorax consistent with a moderate to large pleural effusion. Small left effusion No significant change compared to prior day Ryne Blanc MD Tibia/Fibula X-Ray 04/11/17 0000 Signed Impressions: Service Date/Time: Tuesday, April 11, 2017 14:48 - CONCLUSION: Soft tissue swelling and no definite fracture for technique. Marcel Pabon MD Foot X-Ray 04/11/17 0000 Signed Impressions: Service Date/Time: Tuesday, April 11, 2017 14:52 - CONCLUSION: Chronic changes and no evidence for acute fracture. Marcel Pabon MD Objective Remarks GENERAL: This is a well-nourished, well-developed patient, in no apparent distress. CARDIOVASCULAR: Regular rate and rhythm without murmurs, gallops, or rubs. RESPIRATORY: Decreased breath sounds on the right, left with basilar crackles. No wheezes, rales, or rhonchi appreciated GASTROINTESTINAL: Abdomen soft, non-tender, nondistended. Normal active bowel sounds MUSCULOSKELETAL: Right great toe minimal erythema with dry skin on the toe plantar surface. Extremities without clubbing, cyanosis, or edema. NEURO: Alert & Oriented x4 to person, place, time, situation. Moves all ext x4 A/P Problem List: (1) Cellulitis ICD Code: L03.90 Status: Acute Plan: Overall improved per patient and spouse Improved on exam objectively Continue with plans for outpatient follow-up with oral antibiotics (Keflex and doxycycline to complete 14 days) (2) Pleural effusion ICD Code: J90 Status: Acute Plan: Symptomatic and new, repeat x-ray shows persistent effusion and patient with some dyspnea with minimal exertion. Pulmonary consult pending, thoracentesis. Problem Qualifiers (1) Cellulitis: Qualified Code: L03.115 - Cellulitis of right lower extremity Remedios Blevins MD Apr 16, 2017 09:54
[2017-04-16] MEDS ORDERED: hydrALAZINE HCL 20 MG/ML VIAL IV PUSH PRN (12:30)
--- NOTE | 2017-04-16 14:09 | MB ---
cc: DIANA ORTIZ M.D. DATE OF CONSULTATION: 04/16/2017. REASON FOR CONSULTATION: Right pleural effusion. HISTORY OF PRESENT ILLNESS: Mr. Cardona is an 89-year-old male with known history of congestive heart failure, atrial fibrillation and long-term anticoagulant therapy, hypothyroidism and hyperlipidemia. The patient was admitted with cellulitis of the right hallux toe. The patient is being treated for same. He did have evidence of hypoxemia. Chest x-ray revealing a large right pleural effusion. I have been asked to see the patient at this time for same. PAST MEDICAL HISTORY: 1. Congestive heart failure. 2. Atrial fibrillation. 3. Hypothyroidism. 4. Hyperlipidemia. 5. Delayed bladder emptying. 6. Cardiac valve repair in 2004. SOCIAL HISTORY: There is no smoking, no drinking and does not use drugs. MEDICATIONS AT HOME: 1. Amlodipine. 2. Digoxin. 3. Levothyroxine. 4. Jantoven 5. Lisinopril. 6. Metoprolol. 7. Coumadin. FAMILY HISTORY: Noncontributory. REVIEW OF SYSTEMS: 12-point review of systems as per the history of present illness and past history otherwise negative. PHYSICAL EXAMINATION: GENERAL: On exam, the patient is alert. VITAL SIGNS: His temperature is 98 degrees Fahrenheit, pulse 80 and regular, respirations 18, blood pressure 150/66. HEAD, EYES, EARS, NOSE, THROAT: Unremarkable. Eyes without icterus. NECK: Without adenopathy, thyroid enlargement. CHEST: Decreased breath sounds right hemithorax. CARDIAC: Irregularity noted. ABDOMEN: Lax. Bowel sounds audible. EXTREMITIES: Trace edema. LABORATORY DATA: White count 8.3, hemoglobin 9.4, hematocrit 29.7, platelets 463,000. Sodium 143, potassium 4.8 on 04/12, BUN 34, creatinine 2.5. INR today is at 3.9. IMPRESSION: 1. Right pleural effusion. 2. Congestive heart failure. 3. Atrial fibrillation. 4. Hypothyroidism. 5. Cellulitis as discussed above. PLAN: 1. The patient will need a thoracentesis. His oxygen saturation is at 95% on 2 liters oxygen nasal cannula. 2. Will await correction of his underlying coagulopathy and once this has been achieved, a thoracentesis may be done. I do thank you for asking me to partake in Mr. Cardona's care. Diana Ortiz MD WWW/NUVIA /1:42 PM /2:05 PM
[2017-04-16] MEDS ORDERED: PHYTONADIONE 5 MG TAB PO ONE ×2 (15:45→16:30)
[2017-04-16] MEDS ORDERED: WARFARIN SOD 5 MG TAB PO SCH (16:00)
[2017-04-16] MEDS: ATORVASTATIN 40 MG TAB PO SCH (20:29)
[2017-04-16] MEDS: TEMAZEPAM 15 MG CAP PO PRN (20:29)
[2017-04-17] VITALS (9 sets, daily range): BP systolic 140–187; BP diastolic 70–89; PULSE 72–91; RESP 16–20; TEMP 95.5–98; O2SAT 94–98
[2017-04-17] MEDS: LEVOTHYROXINE SODIUM 100 MCG TAB PO SCH (06:02)
[2017-04-17 06:57] LABS: INTERNATIONAL NORMALIZED RATIO 1.8 RATIO; PROTHROMBIN TIME - PATIENT 20.7 SEC (9.8-11.6)
[2017-04-17] MEDS: DOCUSATE SODIUM 50 MG/SENNA 8.6 MG TAB PO SCH ×2 (09:00→20:51)
[2017-04-17] MEDS: DIGOXIN 0.25 MG TAB PO SCH (09:00)
[2017-04-17] MEDS: amLODIPine BESYLATE 5 MG TAB PO SCH (09:24)
[2017-04-17] MEDS: CEPHALEXIN MONOHYDRATE 500 MG CAP PO SCH ×4 (09:24→20:51)
[2017-04-17] MEDS: METOPROLOL SUCCINATE 50 MG EXTENDED RELEASE TAB PO SCH (09:24)
[2017-04-17] MEDS: DOXYCYCLINE HYCLATE 100 MG TAB PO SCH ×2 (09:25→20:51)
[2017-04-17] MEDS: LISINOPRIL 20 MG TAB PO SCH (09:25)
[2017-04-17] MEDS: SODIUM CHLORIDE 0.9% FLUSH 10 ML FLUSH IV FLUSH SCH ×2 (09:25→20:52)
--- NOTE | 2017-04-17 12:56 | HHI.PR ---
Subjective Remarks Patient seen today in follow-up for pleural effusion, INR 1.8 today. Patient for thoracentesis today. May consult appreciated. Discussed at length with family and patient at bedside. Objective Vitals Vital Signs Date Time Temp Pulse Resp B/P Pulse Ox O2 Delivery O2 Flow Rate FiO2 04/17/17 12:00 95.6 72 20 178/72 98 04/17/17 08:00 96.0 84 20 185/81 94 04/17/17 04:00 04/17/17 01:26 97.0 80 18 140/70 98 04/16/17 22:11 96.2 87 20 156/72 97 04/16/17 20:00 97 21 04/16/17 16:22 96.8 75 19 157/73 98 I/O 04/16/17 04/16/17 04/16/17 04/17/17 04/17/17 04/17/17 07:00 15:00 23:00 07:00 15:00 23:00 Intake Total 180 ml 750 ml 0 ml Balance 180 ml 750 ml 0 ml Intake Oral 180 ml 750 ml IV Total 0 ml 0 ml 0 ml # Voids 1 4 3 # Bowel Movements 0 1 Result Diagram: 04/16/17 0701 Objective Remarks GENERAL: This is a well-nourished, well-developed patient, in no apparent distress. CARDIOVASCULAR: Regular rate and rhythm without murmurs, gallops, or rubs. RESPIRATORY: Decreased breath sounds on the right, left with basilar crackles. No wheezes, rales, or rhonchi appreciated GASTROINTESTINAL: Abdomen soft, non-tender, nondistended. Normal active bowel sounds MUSCULOSKELETAL: Right great toe minimal erythema with dry skin on the toe plantar surface. Extremities without clubbing, cyanosis, or edema. NEURO: Alert & Oriented x4 to person, place, time, situation. Moves all ext x4 A/P Problem List: (1) Cellulitis ICD Code: L03.90 Status: Acute Plan: Overall improved per patient and spouse Improved on exam objectively Continue with plans for outpatient follow-up with oral antibiotics (Keflex and doxycycline to complete 14 days) (2) Pleural effusion ICD Code: J90 Status: Acute Plan: Symptomatic and new, For thoracentesis today, will follow-up results Recheck oxygenation postprocedure in a.m. Assessment and Plan Pending oxygen status, discharge home in a.m. Problem Qualifiers (1) Cellulitis: Qualified Code: L03.115 - Cellulitis of right lower extremity Remedios Blevins MD Apr 17, 2017 12:56
--- NOTE | 2017-04-17 14:28 | HHI.PR ---
Subjective Remarks [id number] sob with exertion Objective GENERAL: SKIN: Warm and dry. HEAD: Atraumatic. Normocephalic. EYES: Pupils equal and round. No scleral icterus. No injection or drainage. ENT: No nasal bleeding or discharge. Mucous membranes pink and moist. NECK: Trachea midline. No JVD. CARDIOVASCULAR: Regular rate and rhythm. RESPIRATORY: decrease breath sound at basis gastOINTESTINAL: Abdomen soft, non-tender, nondistended. Hepatic and splenic margins not palpable. MUSCULOSKELETAL: Extremities without clubbing, cyanosis, or edema. No obvious deformities. NEUROLOGICAL: Awake and alert. No obvious cranial nerve deficits. Motor grossly within normal limits. Five out of 5 muscle strength in the arms and legs. Normal speech. PSYCHIATRIC: Appropriate mood and affect; insight and judgment normal. Vital Signs Date Time Temp Pulse Resp B/P Pulse Ox O2 Delivery O2 Flow Rate FiO2 04/17/17 13:35 96.4 86 20 180/89 98 04/17/17 12:00 95.6 72 20 178/72 98 04/17/17 08:00 96.0 84 20 185/81 94 04/17/17 04:00 04/17/17 01:26 97.0 80 18 140/70 98 04/16/17 22:11 96.2 87 20 156/72 97 04/16/17 20:00 97 21 04/16/17 16:22 96.8 75 19 157/73 98 I/O 04/16/17 04/16/17 04/16/17 04/17/17 04/17/17 04/17/17 07:00 15:00 23:00 07:00 15:00 23:00 Intake Total 180 ml 750 ml 0 ml 480 ml Balance 180 ml 750 ml 0 ml 480 ml Intake Oral 180 ml 750 ml 480 ml IV Total 0 ml 0 ml 0 ml # Voids 1 4 3 2 # Bowel Movements 0 1 Result Diagram: 04/16/17 0701 Assessment and Plan Assessment and Plan pleural effusion CHF CELLULITIS PLAN THORACENTESIS TODAY THERAPY FOR CHF Diana Ortiz MD Apr 17, 2017 14:28
--- NOTE | 2017-04-17 14:48 | RADRPT ---
EXAM DATE/TIME: 04/17/2017 14:30 [facility] COMPARISON: CHEST PA & LAT, April 16, 2017, 9:13. INDICATIONS : Post right thorocentesis MEDICAL HISTORY : Hypertension. Hypercholesterolemia. AFib, SURGICAL HISTORY : Cardiac catherization, heart valve ENCOUNTER: Subsequent ACUITY: 1 day PAIN SCORE: 0/10 LOCATION: Bilateral chest FINDINGS: A single frontal expiratory view of the chest was performed. Interval resolution of right-sided pleur al effusion following thoracentesis. There is a small residual pneumothorax in the right inferior hem ithorax. Trace left pleural effusion. The cardiac silhouette enlarged. Remainder of exam is unchanged . CONCLUSION: 1. Small inferior right pneumothorax following right-sided thoracentesis. Overall configuration is mo st consistent with sequestered lung following thoracentesis rather than true pneumothorax. Adair Evans MD on April 17, 2017 at 14:43 Board Certified Radiologist. This report was verified electronically.
[2017-04-17] MEDS: WARFARIN SOD 2.5 MG TAB PO SCH (15:06)
[2017-04-17] MEDS ORDERED: cloNIDine HCL 0.1 MG TAB PO PRN (15:15)
--- NOTE | 2017-04-17 15:37 | RADRPT ---
EXAM DATE/TIME: 04/17/2017 13:43 [facility] COMPARISON: No previous studies available for comparison. INDICATIONS : Right pleural effusion. MEDICAL HISTORY : Hypercholesterolemia. Hypertension. A-fib. SURGICAL HISTORY : Appendectomy. Cardiac cath. Back surgery. Heart valved repair. ENCOUNTER: Initial ACUITY: 2 days PAIN SCORE: 0/10 LOCATION: Right chest FLUID: Total volume of 2900 cc of cloudy, straw-colored fluid was removed. Fluid was sent to lab for ordered studies. TECHNIQUE: 1. Ultrasound guidance for thoracentesis. 2. Thoracentesis. The risks, benefits, and alternatives to ultrasound guided thoracentesis were explained to the patien t in lay simple terms, including the risk of bleeding and infection. Written and verbal informed con sent was obtained. Appropriate area for thoracentesis was marked under ultrasound guidance with the patient in the uprig ht position. Overlying skin was prepped and draped in the usual sterile fashion and with local anest hetic, a dermatotomy was made with an 11 blade scalpel. A 6 Danish thoracentesis catheter was placed in the pleural space and fluid was removed. Catheter was then removed and a sterile dressing applie d. There were no immediate complications. The patient tolerated the procedure well and the left the ultrasound suite in stable condition. Chest radiograph is to be obtained. CONCLUSION: Uncomplicated ultrasound guided right thoracentesis. Deion Awad Jr., MD on April 17, 2017 at 15:35 Board Certified Radiologist. This report was verified electronically.
[2017-04-17 16:59] LABS: PLEURAL FLUID LYMPHS 86 %
[2017-04-17 18:43] LABS: GLUCOSE,PLEURAL FLUID 133 MG/DL
[2017-04-17] MEDS: ATORVASTATIN 40 MG TAB PO SCH (20:51)
[2017-04-18] VITALS: BP 151/59; PULSE 82; RESP 16; TEMP 98.6; O2SAT 93
[2017-04-18] MEDS: LEVOTHYROXINE SODIUM 100 MCG TAB PO SCH (05:33)
[2017-04-18 06:27] LABS: INTERNATIONAL NORMALIZED RATIO 1.3 RATIO; PROTHROMBIN TIME - PATIENT 14.7 SEC (9.8-11.6)
--- NOTE | 2017-04-18 06:54 | RADRPT ---
EXAM DATE/TIME: 04/18/2017 06:26 [facility] COMPARISON: CHEST PA & LAT, April 16, 2017, 9:13. INDICATIONS : Evaluate for pneumothorax, post thoracentesis. MEDICAL HISTORY : Hypertension. A-fib. SURGICAL HISTORY : Thoracentesis, right. Heart valve repair. ENCOUNTER: Subsequent ACUITY: 4 - 6 days PAIN SCORE: Non-responsive. LOCATION: Bilateral chest FINDINGS: Status post right thoracentesis. Most of the fluid from the right side has been drained. There is a s mall residual right pneumothorax with 1.5 cm separation above the right costophrenic angle. There is an infiltrate in the right lung base most likely from compressive atelectasis. The left lung is gross ly clear. The heart size is stable. There is evidence of previous cardiothoracic surgery. CONCLUSION: 1. Status post right thoracentesis. 2. Small right pneumothorax with 1.5 cm of separation above the costophrenic angle. Thomas Chaidez MD on April 18, 2017 at 6:50 Board Certified Radiologist. This report was verified electronically.
[2017-04-18 08:00] VITALS: BP 178/53; PULSE 72; RESP 20; TEMP 97.2; O2SAT 99
[2017-04-18] MEDS: DOCUSATE SODIUM 50 MG/SENNA 8.6 MG TAB PO SCH (09:00)
[2017-04-18] MEDS: SODIUM CHLORIDE 0.9% FLUSH 10 ML FLUSH IV FLUSH SCH (09:40)
[2017-04-18] MEDS: METOPROLOL SUCCINATE 50 MG EXTENDED RELEASE TAB PO SCH (09:40)
[2017-04-18] MEDS: LISINOPRIL 20 MG TAB PO SCH (09:40)
[2017-04-18] MEDS: amLODIPine BESYLATE 5 MG TAB PO SCH (09:40)
[2017-04-18] MEDS: CEPHALEXIN MONOHYDRATE 500 MG CAP PO SCH (09:40)
[2017-04-18] MEDS: DOXYCYCLINE HYCLATE 100 MG TAB PO SCH (09:41)
[2017-04-18] MEDS: DIGOXIN 0.25 MG TAB PO SCH (09:41)
[2017-04-18] MEDS ORDERED: WARFARIN SOD 5 MG TAB PO ONE (10:00)
--- NOTE | 2017-04-18 10:08 | HHI.DS ---
cc: Zoe Chavez MD Discharge Summary Admission Date Apr 11, 2017 at 15:15 Discharge Date: Apr 18, 2017 Admitting Diagnosis cellulitis (1) Cellulitis ICD Code: L03.90 (2) Pleural effusion ICD Code: J90 Procedures Right sided thoracentesis 2.9 liters cloudy fluid Brief History - From Admission Patient is a very pleasant 89-year-old male with past medical history of A. 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 Patient was in his podiatry Dr King office today for follow up of an ulcer to R hallux. He stated that the toe became more red and painful through this past weekend. I&D of abscess was performed in-office by his podiatry doctor and cultures taken in-office today, then patient was sent to ED to for IV antibiotics. Patient says he has been, redness getting worse or no rashes present for one week and is getting worse for the past 2 days. He can walk however he has pain. There is more swelling. He has no fever or chills at this time. He was not taking any antibiotics as outpatient. He denies any nausea, vomiting, diarrhea or constipation. No problem with urination. CBC/BMP: 04/16/17 0701 Significant Findings Laboratory Tests Test 04/16/17 04/16/17 04/17/17 04/17/17 07:01 09:46 06:15 14:25 Prothrombin Time 46.2 SEC 20.7 SEC (9.8-11.6) (9.8-11.6) Creatinine 2.70 MG/DL (0.60-1.30) Estimat Glomerular Filtration 22 ML/MIN (>89) Rate B-Type Natriuretic Peptide 362 PG/ML (0-100) Pleural Fluid WBC 340 /MM3 (0-10) Pleural Fluid RBC 1520 /MM3 (0-0) Test 04/18/17 05:33 Prothrombin Time 14.7 SEC (9.8-11.6) PE at Discharge GENERAL: This is a well-nourished, well-developed patient, in no apparent distress. CARDIOVASCULAR: Regular rate and rhythm without murmurs, gallops, or rubs. RESPIRATORY: Decreased breath sounds on the right, left with basilar crackles. No wheezes, rales, or rhonchi appreciated GASTROINTESTINAL: Abdomen soft, non-tender, nondistended. Normal active bowel sounds MUSCULOSKELETAL: Right great toe minimal erythema with dry skin on the toe plantar surface. Extremities without clubbing, cyanosis, or edema. NEURO: Alert & Oriented x4 to person, place, time, situation. Moves all ext x4 Pt update on day of discharge Patient doing very well. Walk test past. Discharge plans discussed with patient, nursing team, daughter and spouse. I did call his primary care provider to inform her of discharge knees and follow-up plan. Hospital Course Patient is a 89-year-old gentleman who was admitted for right toe cellulitis. He was found to also be hypoxemic and had a rather large pleural effusion on the right side. This was drained. 2.9 L of fluid were sent for further testing. Patient oxygenation improved and he was discharged home for outpatient follow-up as below. Medications were prescribed for his toe infection with the consultation of both ID and podiatry. Patient did have vitamin K given prior to his thoracentesis and his INR at time of discharge is 1.3. This will continue to be followed by his primary care provider. Patient is advised to return to the hospital for further evaluation should he become dyspneic or short of breath and or have chest discomfort. Pt Condition on Discharge: Stable Discharge Disposition: Discharge Home Discharge Time: > 30 minutes Discharge Instructions DIET: Follow Instructions for: Coumadin (Warfarin) Diet Activities you can perform: See Additionl Instruction Other Activity Instructions: see pcp for further clearance Follow up Referrals: PCP Follow-up - 2-3 Days with [facility] - 04/18/17 with Elmer Zee DPM Pulmonology - 1 Week with Diana Ortiz MD New Orders: X-RAY CHEST PA & LAT - 2-3 Days New Medications: Cephalexin (Cephalexin) 500 Mg Cap 500 MG PO QID Infection #56 CAP Doxycycline Hyclate (Doxycycline Hyclate) 100 Mg Tab 100 MG PO BID Infection #28 TAB Continued Medications: Amlodipine (Amlodipine) 5 Mg Tab 5 MG PO DAILY Blood Pressure Management #30 Ref 0 TAB Atorvastatin (Atorvastatin) 40 Mg Tab 40 MG PO HS Cholesterol Management #30 Ref 0 TAB Digoxin (Digoxin) 0.25 Mg Tab 0.25 MG PO DAILY Regulate Heart Beat #30 Ref 0 TAB Levothyroxine (Levothyroxine) 100 Mcg Tab 100 MCG PO DAILY Thyroid #30 Ref 0 TAB Lisinopril (Lisinopril) 40 Mg Tab 40 MG PO DAILY Blood Pressure Management #30 Ref 0 TAB Metoprolol Succinate ER 24 HR (Metoprolol Succinate ER 24 HR) 100 Mg Tab 100 MG PO DAILY #30 Ref 0 TAB Warfarin (Jantoven) 5 Mg Tab 5 MG PO MONDAY Blood Clot Prevention #30 Ref 0 TAB Warfarin (Jantoven) 2.5 Mg Tab 2.5 MG PO m,,we,th,fr,sa Blood Clot Prevention #30 Ref 0 TAB Remedios Blevins MD Apr 18, 2017 10:08
== END 2017-04-18 11:03 | disposition home or self-care (01) | DRG 603 ==
LOC: PHED 12:16 → PHEDA 15:15 → PH3B 20:30
PROVIDERS: ADMIT Hospitalist; ATTEND Hospitalist
PROC: 0W993ZZ Drainage of Right Pleural Cavity, Percutaneous Approach (ICD-10-PCS; principal; 2017-04-17)
DX: L03.115 Cellulitis of right lower limb (principal); J90 Pleural effusion, not elsewhere classified; I48.91 Unspecified atrial fibrillation; I13.0 Hypertensive heart and chronic kidney disease with heart failure and stage 1 through stage 4 chronic kidney disease, or unspecified chronic kidney disease; I50.9 Heart failure, unspecified; N18.9 Chronic kidney disease, unspecified; L03.031 Cellulitis of right toe; L97.519 Non-pressure chronic ulcer of other part of right foot with unspecified severity; D64.9 Anemia, unspecified; E78.00 Pure hypercholesterolemia, unspecified; E78.5 Hyperlipidemia, unspecified; E03.9 Hypothyroidism, unspecified; R09.02 Hypoxemia; H91.93 Unspecified hearing loss, bilateral; Z79.01 Long term (current) use of anticoagulants; Z87.891 Personal history of nicotine dependence
CPT/HCPCS: 32555; 71010; 71020; 73590; 73630; 80053; 80202; 82565; 82945; 83605; 83615; 83735; 83880; 84100; 84443; 85025; 85610; 85730; 87015; 87040; 87070; 87102; 87116; 87205; 87206; 89051; 94620; 96365; 96367; C1729; J0360; J2405; J2543; J3370; J7030; J7050

== ENCOUNTER → 2017-04-25 | Outpatient (CLI) | payer MEDICARE, BC ==
[~2017-04-25] MED LIST changes: +CEPH500C PO; +DOXY100T PO; +JANT2.5T PO
[2017-04-25 08:58] LABS: INTERNATIONAL NORMALIZED RATIO 4.1 RATIO; PROTHROMBIN TIME - PATIENT 48.8 SEC (9.8-11.6)
== END ==
LOC: PLAB 06:41
PROVIDERS: ATTEND Family Medicine
DX: Z79.01 Long term (current) use of anticoagulants (principal)
CPT/HCPCS: 36415; 85610

== ENCOUNTER → 2017-05-08 | Outpatient (CLI) | payer MEDICARE, BC ==
[2017-05-08 08:52] LABS: INTERNATIONAL NORMALIZED RATIO 2.6 RATIO; PROTHROMBIN TIME - PATIENT 30.2 SEC (9.8-11.6)
== END ==
LOC: PLAB 06:39
PROVIDERS: ATTEND Family Medicine
DX: Z79.01 Long term (current) use of anticoagulants (principal)
CPT/HCPCS: 36415; 85610

== ENCOUNTER → 2017-06-07 | Outpatient (CLI) | payer MEDICARE, BC ==
[2017-06-07 08:54] LABS: INTERNATIONAL NORMALIZED RATIO 3.8 RATIO; PROTHROMBIN TIME - PATIENT 44.1 SEC (9.8-11.6)
== END ==
LOC: PLAB 06:44
PROVIDERS: ATTEND Family Medicine
DX: Z79.01 Long term (current) use of anticoagulants (principal)
CPT/HCPCS: 36415; 85610

== ENCOUNTER → 2017-06-19 | Outpatient (CLI) | payer MEDICARE, BC ==
[2017-06-19 08:22] LABS: INTERNATIONAL NORMALIZED RATIO 2.6 RATIO; PROTHROMBIN TIME - PATIENT 30.3 SEC (9.8-11.6)
[2017-06-19 08:55] LABS: BASOPHIL % 0.2 % (0.0-2.0); EOSINOPHIL # 0.6 TH/MM3 (0-0.4); HEMATOCRIT 25.2 % (39.0-51.0); HEMO FLAGS DIFF FINAL; LYMPH % 4.6 % (9.0-44.0); LYMPHOCYTE # 0.5 TH/MM3 (1.0-4.8); MEAN CELL VOLUME 85.1 FL (80.0-100.0); MEAN CORPUSCULAR HEMOGLOBIN 27.8 PG (27.0-34.0); MEAN CORPUSCULAR HGB CONC 32.7 % (32.0-36.0); MONO % 9.3 % (0.0-8.0); NEUT % 79.9 % (16.0-70.0); PLATELET COUNT 492 TH/MM3 (150-450); RED BLOOD COUNT 2.96 MIL/MM3 (4.50-5.90); RED CELL DISTRIBUTION WIDTH 15.3 % (11.6-17.2)
[2017-06-19 09:40] LABS: ALT (GPT) 23 U/L (12-78); ANION GAP 8 MEQ/L (5-15); AST (GOT) 27 U/L (15-37); BICARBONATE 23.7 MEQ/L (21.0-32.0); BLOOD UREA NITROGEN 36 MG/DL (7-18); CHLORIDE 105 MEQ/L (98-107); GLOMERULAR FILTRATION RATE 22 ML/MIN (>89); GLUCOSE,FASTING 96 MG/DL (74-99); SODIUM (NA) 137 MEQ/L (136-145)
[2017-06-19 09:49] LABS: ALKALINE PHOSPHATASE 123 U/L (45-117); FREE T4 1.14 NG/DL (0.76-1.46); HDL CHOLESTEROL 33.8 MG/DL (40.0-60.0); LDL CHOLESTEROL 72 MG/DL (0-99); TOTAL BILIRUBIN ADULT 0.2 MG/DL (0.2-1.0)
[2017-06-19 18:33] LABS: HEMOGLOBIN A1a 1.8 %; HEMOGLOBIN A1b 2.5 %
[2017-06-19 18:34] LABS: HEMOGLOBIN Ao 80.4 %; HEMOGLOBIN LA1C 2.6 %; HEMOGLOBIN P3 7.4 %
== END ==
LOC: PLAB 06:49
PROVIDERS: ATTEND Family Medicine
DX: E78.5 Hyperlipidemia, unspecified (principal); R73.01 Impaired fasting glucose; E03.9 Hypothyroidism, unspecified; I48.91 Unspecified atrial fibrillation; Z79.01 Long term (current) use of anticoagulants
CPT/HCPCS: 36415; 80053; 80061; 83036; 84439; 84443; 85025; 85610

== ENCOUNTER → 2017-07-17 | Outpatient (CLI) | payer MEDICARE, BC ==
[2017-07-17 08:56] LABS: INTERNATIONAL NORMALIZED RATIO 4.1 RATIO; PROTHROMBIN TIME - PATIENT 47.9 SEC (9.8-11.6)
== END ==
LOC: PLAB 06:42
PROVIDERS: ATTEND Family Medicine
DX: I48.91 Unspecified atrial fibrillation (principal); Z79.01 Long term (current) use of anticoagulants
CPT/HCPCS: 36415; 85610

== ENCOUNTER → 2017-07-31 | Outpatient (CLI) | payer MEDICARE, BC ==
[2017-07-31 08:59] LABS: INTERNATIONAL NORMALIZED RATIO 3.7 RATIO; PROTHROMBIN TIME - PATIENT 42.8 SEC (9.8-11.6)
== END ==
LOC: PLAB 06:41
PROVIDERS: ATTEND Family Medicine
DX: I48.91 Unspecified atrial fibrillation (principal); Z79.01 Long term (current) use of anticoagulants
CPT/HCPCS: 36415; 85610

== ENCOUNTER 2017-08-14 16:38 | Inpatient (IN) | payer MEDICARE, BC ==
[2017-08-14] VITALS (10 sets, daily range): BP systolic 142–174; BP diastolic 66–102; PULSE 61–70; RESP 18–40; TEMP 96.6–98.2; O2SAT 90–98
[~2017-08-14] VITALS: Ht 180.3 cm; Wt 75.1 kg
[~2017-08-14 16:38] MED LIST changes: -CEFU1TAB18 PO
--- NOTE | 2017-08-14 17:23 | RADRPT ---
EXAM DATE/TIME: 08/14/2017 17:11 [place] COMPARISON: CHEST PA & LAT, April 18, 2017, 6:26. INDICATIONS : Short of breath. Upcoming left thoracentesis. MEDICAL HISTORY : Hypertension. Atrial fibrilation. ENCOUNTER: Subsequent ACUITY: 2 days PAIN SCORE: 0/10 LOCATION: Bilateral chest FINDINGS: There are bilateral pleural effusions larger on the right than the left. The right effusion occupies roughly 1/3 of the right hemithorax. Left occupies probably one quarter. The pulmonary vascularity is normal. The heart is minimally large. Sternal wires and bypass are noted. CONCLUSION: Bilateral pleural effusions larger on the right than the left. Carl Garza MD FACR on August 14, 2017 at 17:21 Board Certified Radiologist. This report was verified electronically.
[2017-08-14 18:02] LABS: AUTOMATED NEUTROPHIL # 7.6 TH/MM3 (1.8-7.7); BASOPHIL % 0.5 % (0.0-2.0); EOSINOPHIL # 0.8 TH/MM3 (0-0.4); EOSINOPHIL % 7.7 % (0.0-4.0); LYMPH % 5.4 % (9.0-44.0); LYMPHOCYTE # 0.5 TH/MM3 (1.0-4.8); MEAN CELL VOLUME 80.5 FL (80.0-100.0); MEAN CORPUSCULAR HEMOGLOBIN 27.6 PG (27.0-34.0); MEAN CORPUSCULAR HGB CONC 34.3 % (32.0-36.0); MONO % 10.2 % (0.0-8.0); NEUT % 76.2 % (16.0-70.0); PLATELET COUNT 524 TH/MM3 (150-450); RED BLOOD COUNT 2.51 MIL/MM3 (4.50-5.90); RED CELL DISTRIBUTION WIDTH 17.2 % (11.6-17.2)
[2017-08-14 18:06] LABS: HEMO FLAGS DIFF FINAL
[2017-08-14] MEDS ORDERED: LEVO100T5 PO ×2 (18:08)
[2017-08-14] MEDS ORDERED: JANT5TAB PO ×2 (18:08)
[2017-08-14 18:12] LABS: HEMATOCRIT 20.2 % (39.0-51.0)
[2017-08-14 18:15] LABS: BICARBONATE 25.8 MEQ/L (21.0-32.0); POTASSIUM 5.1 MEQ/L (3.5-5.1)
[2017-08-14] MEDS ORDERED: SODIUM CHLOR 0.9% 250 ML INJ 250 ML IV ONE ×2 (18:15→19:30)
--- NOTE | 2017-08-14 18:15 | PD ---
HPI Chief Complaint: Abnormal Results Time Seen by Provider: 17:39 Travel History International Travel<30 days: No Contact w/Intl Traveler<30days: No Traveled to known affect area: No History of Present Illness HPI 89-year-old male patient with history of A. fib, heart valve replacement, currently on Coumadin, presents to the ER today with his , apparently has been sent in by his forming fixer, he is being evaluated for pleural effusions, is post to get pleural effusions drainage in a few days, and had initial lab work done which shows significant anemia and elevated INRs. He has been having shortness of breath and dyspnea on exertion according his . He denies any current chest pains or other symptoms. Modifying Factors: None Associated Signs & Symptoms: Dyspnea on exertion, shortness of breath, abnormal lab values Risk Factors: Currently on Coumadin PFSH Past Medical History Hx Anticoagulant Therapy: Yes Atrial Fibrillation: Yes Heart Rhythm Problems: Yes Cancer: No Cardiac Catheterization: Yes Cardiovascular Problems: Yes High Cholesterol: Yes Congestive Heart Failure: No Diabetes: Yes Patient Takes Glucophage: No Diminished Hearing: Yes (BILAT HEARING AIDS) Endocrine: No Genitourinary: Yes (bladder doesn't fully empty) Hypertension: Yes Immune Disorder: No Musculoskeletal: Yes Neurologic: No Psychiatric: No Reproductive: No Respiratory: Yes Past Surgical History Appendectomy: Yes Cardiac Surgery: Yes (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) Other Surgery: Yes Social History Alcohol Use: Yes (daily wine) Tobacco Use: No (QUIT 1959) Substance Use: No Allergies-Medications (Allergen,Severity, Reaction): Coded Allergies: No Known Allergies (Verified Adverse Reaction, Unknown, 08/14/17) Reported Meds & Prescriptions Reported Meds & Active Scripts Active Reported Levothyroxine (Levothyroxine Sodium) 100 Mcg Tab 100 Mcg PO DAILY Jantoven (Warfarin) 5 Mg Tab 5 Mg PO DAILY Amlodipine (Amlodipine Besylate) 5 Mg Tab 5 Mg PO DAILY Digoxin 0.25 Mg Tab 0.25 Mg PO DAILY Atorvastatin (Atorvastatin Calcium) 40 Mg Tab 40 Mg PO HS Metoprolol Succinate ER 24 HR (Metoprolol Succinate) 100 Mg Tab 100 Mg PO DAILY Lisinopril 40 Mg Tab 40 Mg PO DAILY Review of Systems Except as stated in HPI: all other systems reviewed are Neg Physical Exam Narrative GENERAL: Well-developed elderly white male patient currently in mild respiratory distress, awake and oriented 3. SKIN: Focused skin assessment warm/dry. HEAD: Atraumatic. Normocephalic. EYES: Pupils equal and round. No scleral icterus. No injection or drainage. ENT: No nasal bleeding or discharge. Mucous membranes pink and moist. NECK: Trachea midline. No JVD. CARDIOVASCULAR: Regular rate and rhythm. No murmur appreciated. RESPIRATORY: Mild accessory muscle use. Decreased at the bases bilaterally. Breath sounds equal bilaterally. GASTROINTESTINAL: Abdomen soft, non-tender, nondistended. Hepatic and splenic margins not palpable. MUSCULOSKELETAL: No obvious deformities. No clubbing. No cyanosis. No edema. NEUROLOGICAL: Awake and alert. No obvious cranial nerve deficits. Motor grossly within normal limits. Normal speech. PSYCHIATRIC: Appropriate mood and affect; insight and judgment normal. Data Data Last Documented VS Vital Signs Date Time Temp Pulse Resp B/P (MAP) Pulse Ox O2 Delivery O2 Flow Rate FiO2 08/14/17 19:25 69 22 142/66 97 08/14/17 18:59 98.2 Orders Orders Complete Blood Count With Diff (08/14/17 16:51) Basic Metabolic Panel (Bmp) (08/14/17 16:51) Coag Profile (08/14/17 16:51) Chest, Pa & Lat (08/14/17 ) Electrocardiogram (08/14/17 ) Type And Screen (08/14/17 17:39) Red Blood Cells (Rbc) (08/14/17 18:15) Blood Product Administration (08/14/17 18:15) Sodium Chlor 0.9% 250 Ml Inj (Ns 250 Ml (08/14/17 18:15) Admit Order (Ed Use Only) (08/14/17 19:27) Fresh Frozen Plasma (Ffp) (08/14/17 19:27) Blood Product Administration (08/14/17 19:27) Sodium Chlor 0.9% 250 Ml Inj (Ns 250 Ml (08/14/17 19:30) Labs Laboratory Tests Test 08/14/17 17:35 White Blood Count 10.0 TH/MM3 Red Blood Count 2.51 MIL/MM3 Hemoglobin 6.9 GM/DL Hematocrit 20.2 % Mean Corpuscular Volume 80.5 FL Mean Corpuscular Hemoglobin 27.6 PG Mean Corpuscular Hemoglobin Concent 34.3 % Red Cell Distribution Width 17.2 % Platelet Count 524 TH/MM3 Mean Platelet Volume 7.3 FL Neutrophils (%) (Auto) 76.2 % Lymphocytes (%) (Auto) 5.4 % Monocytes (%) (Auto) 10.2 % Eosinophils (%) (Auto) 7.7 % Basophils (%) (Auto) 0.5 % Neutrophils # (Auto) 7.6 TH/MM3 Lymphocytes # (Auto) 0.5 TH/MM3 Monocytes # (Auto) 1.0 TH/MM3 Eosinophils # (Auto) 0.8 TH/MM3 Basophils # (Auto) 0.0 TH/MM3 CBC Comment DIFF FINAL Differential Comment Prothrombin Time 19.0 SEC Prothromb Time International Ratio 1.7 RATIO Activated Partial Thromboplast Time 40.2 SEC Blood Urea Nitrogen 45 MG/DL Creatinine 2.97 MG/DL Random Glucose 116 MG/DL Calcium Level 7.8 MG/DL Sodium Level 140 MEQ/L Potassium Level 5.1 MEQ/L Chloride Level 108 MEQ/L Carbon Dioxide Level 25.8 MEQ/L Anion Gap 6 MEQ/L Estimat Glomerular Filtration Rate 20 ML/MIN [facility] Medical Decision Making Medical Screen Exam Complete: Yes Emergency Medical Condition: Yes Medical Record Reviewed: Yes Interpretation(s) EKG shows A. fib at a rate of 64 bpm with no signs of acute ST-T elevations or depressions. Laboratory Tests Test 08/14/17 17:35 Red Blood Count 2.51 MIL/MM3 (4.50-5.90) Hemoglobin 6.9 GM/DL (13.0-17.0) Hematocrit 20.2 % (39.0-51.0) Platelet Count 524 TH/MM3 (150-450) Neutrophils (%) (Auto) 76.2 % (16.0-70.0) Lymphocytes (%) (Auto) 5.4 % (9.0-44.0) Monocytes (%) (Auto) 10.2 % (0.0-8.0) Eosinophils (%) (Auto) 7.7 % (0.0-4.0) Lymphocytes # (Auto) 0.5 TH/MM3 (1.0-4.8) Monocytes # (Auto) 1.0 TH/MM3 (0-0.9) Eosinophils # (Auto) 0.8 TH/MM3 (0-0.4) Prothrombin Time 19.0 SEC (9.8-11.6) Activated Partial Thromboplast Time 40.2 SEC (24.3-30.1) Blood Urea Nitrogen 45 MG/DL (7-18) Creatinine 2.97 MG/DL (0.60-1.30) Random Glucose 116 MG/DL (74-106) Calcium Level 7.8 MG/DL (8.5-10.1) Chloride Level 108 MEQ/L (98-107) Estimat Glomerular Filtration Rate 20 ML/MIN (>89) Last 24 hours Impressions Chest X-Ray 08/14/17 0000 Signed Impressions: Service Date/Time: Monday, August 14, 2017 17:11 - CONCLUSION: Bilateral pleural effusions larger on the right than the left. Carl Garza MD FACR Differential Diagnosis Dyspnea on exertion, shortness of breath, elevated INR, low hemoglobin: Symptomatic anemia versus CHF versus worsening pleural effusion versus pneumonia Narrative Course Chest x-ray shows bilateral pleural effusions. His hemoglobin is quite low. 2 units of PRBCs were ordered for the patient. BUN and creatinine appears to be baseline for this patient. He appears to be fairly symptomatic and my plan would be to admit him for further treatment. His INR is elevated because he is on Coumadin. He will likely need his Coumadin held at this point and needed transfusion before they can do further evaluation of pleural effusions. Plan to admit for further treatment. Diagnosis Primary Impression: Anemia Additional Impression: Pleural effusion Admitting Information Admitting Physician Requests: Admit Fernandez Shahid MD Aug 14, 2017 18:15
[2017-08-14 18:17] LABS: APTT (PATIENT) 40.2 SEC (24.3-30.1); INTERNATIONAL NORMALIZED RATIO 1.7 RATIO
[2017-08-14] MEDS ORDERED: ONDANSETRON HCL 4 MG/2 ML VIAL IVP PRN (19:30)
[2017-08-14] MEDS ORDERED: LACTULOSE SYRUP 20 GM/30 ML CUP PO PRN (19:30)
[2017-08-14] MEDS ORDERED: SODIUM CHLORIDE 0.9% FLUSH 10 ML FLUSH IV FLUSH PRN (19:30)
[2017-08-14] MEDS ORDERED: SENNOSIDES 8.6 MG TAB PO PRN (19:30)
[2017-08-14] MEDS ORDERED: NALOXONE HCL 0.4 MG/ML AMP IV PUSH PRN (19:30)
[2017-08-14] MEDS ORDERED: BISACODYL 10 MG SUPP RECTAL PRN (19:30)
[2017-08-14] MEDS ORDERED: ACETAMINOPHEN 325 MG TAB PO PRN (19:30)
[2017-08-14] MEDS ORDERED: MAGNESIUM HYDROXIDE SUSP 30 ML CUP PO PRN (19:30)
[2017-08-14] MEDS ORDERED: SODIUM CHLOR 0.45% 1000 ML INJ 1,000 ML IV SCH (20:00)
[2017-08-14] MEDS: ATORVASTATIN 40 MG TAB PO SCH (21:00)
[2017-08-14] MEDS: DOCUSATE SODIUM 50 MG/SENNA 8.6 MG TAB PO SCH (21:00)
--- NOTE | 2017-08-14 21:43 | HHI.HP ---
[facility] Service [place] [facility] Primary Care Physician Zoe Chavez MD Admission Diagnosis symptomatic anemia/pleural effusion Diagnoses: Travel History International Travel<30 Days: No Contact w/Intl Traveler <30 Da: No Traveled to Known Affected Are: No History of Present Illness 89-year-old male with a past medical history significant for A. fib anticoagulated on Coumadin, CHF, hypertension, hyperlipidemia, and history of recurrent pleural effusions presented to the emergency department after being sent in by his insulation manager for severe anemia. The patient complains of a 6 month history of increasing shortness of breath. 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 Patient was discharged from [place] in April where he was treated for right toe cellulitis. He had a pleurocentesis on the right side at that time. He states he is supposed to have a thoracentesis with his pack master soon. He cannot remember the name of his insulation manager or his pack master. He endorses increasing shortness of breath, worse with exertion. He denies chest pain. Lab work was significant for an H&H of 6.9/ 20.2. Creatinine 2.97, which is baseline for the patient. TSH 6.19. BNP 321. Chest x-ray significant for bilateral pleural effusions, right greater than left. Review of Systems Denies fever or chills Denies blurry vision, otorrhea, rhinorrhea Denies sore throat and cough No chest pain, palpitations, positive shortness of breath No abdominal pain Denies constipation/diarrhea/nausea/vomiting Denies muscle pain/positive weakness No rashes Past Family Social History Past Medical History A. fib on Coumadin Hypothyroidism Hyperlipidemia Hypertension Delayed emptying of bladder Past Surgical History Heart valve repaired in 2004 Unspecified back surgery Appendectomy Reported Medications Reported Meds & Active Scripts Active Reported Levothyroxine (Levothyroxine Sodium) 100 Mcg Tab 100 Mcg PO DAILY Jantoven (Warfarin) 5 Mg Tab 5 Mg PO DAILY Amlodipine (Amlodipine Besylate) 5 Mg Tab 5 Mg PO DAILY Digoxin 0.25 Mg Tab 0.25 Mg PO DAILY Atorvastatin (Atorvastatin Calcium) 40 Mg Tab 40 Mg PO HS Metoprolol Succinate ER 24 HR (Metoprolol Succinate) 100 Mg Tab 100 Mg PO DAILY Lisinopril 40 Mg Tab 40 Mg PO DAILY Allergies: Coded Allergies: No Known Allergies (Verified Allergy, Unknown, 08/14/17) Family History Parents without diabetes or CAD. Social History Quit smoking 60 years ago. One glass of red wine daily. No illicit drugs. Physical Exam Vital Signs Vital Signs Date Time Temp Pulse Resp B/P (MAP) Pulse Ox O2 Delivery O2 Flow Rate FiO2 08/14/17 20:59 08/14/17 20:13 62 22 173/72 96 08/14/17 20:00 96.6 64 19 174/74 (107) 95 08/14/17 19:36 98.2 64 24 158/69 98 08/14/17 19:34 98.2 08/14/17 19:25 69 22 142/66 97 08/14/17 19:10 62 20 147/68 97 08/14/17 18:59 98.2 61 24 154/102 98 08/14/17 16:40 97.5 70 40 153/76 (101) 90 Physical Exam GENERAL: Elderly male lying in bed SKIN: No rashes, ecchymoses or lesions. Cool and dry. HEAD: Atraumatic. Normocephalic. No temporal or scalp tenderness. EYES: Pupils equal round and reactive. Extraocular motions intact. No scleral icterus. No injection or drainage. ENT: Nose without bleeding, purulent drainage or septal hematoma. Throat without erythema, tonsillar hypertrophy or exudate. Uvula midline. Airway patent. NECK: Trachea midline. No JVD or lymphadenopathy. Supple, nontender, no meningeal signs. CARDIOVASCULAR: Irregular rate with 3/5 TU RESPIRATORY: Diminished breath sounds at the bases bilaterally. Mild expiratory wheezing. GASTROINTESTINAL: Abdomen soft, non-tender, nondistended. No hepato-splenomegaly , or palpable masses. No guarding. MUSCULOSKELETAL: 1+ pitting edema to the mentioned. NEUROLOGICAL: Awake and alert. No obvious cranial nerve defects. Motor grossly within normal limits. Laboratory Laboratory Tests Test 08/14/17 17:35 White Blood Count 10.0 Red Blood Count 2.51 Hemoglobin 6.9 Hematocrit 20.2 Mean Corpuscular Volume 80.5 Mean Corpuscular Hemoglobin 27.6 Mean Corpuscular Hemoglobin Concent 34.3 Red Cell Distribution Width 17.2 Platelet Count 524 Mean Platelet Volume 7.3 Neutrophils (%) (Auto) 76.2 Lymphocytes (%) (Auto) 5.4 Monocytes (%) (Auto) 10.2 Eosinophils (%) (Auto) 7.7 Basophils (%) (Auto) 0.5 Neutrophils # (Auto) 7.6 Lymphocytes # (Auto) 0.5 Monocytes # (Auto) 1.0 Eosinophils # (Auto) 0.8 Basophils # (Auto) 0.0 CBC Comment DIFF FINAL Differential Comment Prothrombin Time 19.0 Prothromb Time International Ratio 1.7 Activated Partial Thromboplast Time 40.2 Blood Urea Nitrogen 45 Creatinine 2.97 Random Glucose 116 Calcium Level 7.8 Sodium Level 140 Potassium Level 5.1 Chloride Level 108 Carbon Dioxide Level 25.8 Anion Gap 6 Estimat Glomerular Filtration Rate 20 Result Diagram: 08/14/17 1735 08/14/17 173 Caprini VTE Risk Assessment Caprini VTE Risk Assessment: Mod/High Risk (score >= 2) Caprini Risk Assessment Model Point Value = 1 Point Value = 2 Point Value = 3 Point Value = 5 Age 41-60 Minor surgery BMI > 25 kg/m2 Swollen legs Varicose veins or History of unexplained or recurrent spontaneous Oral contraceptives or hormone replacement Sepsis (< 1 month) Serious lung disease, including pneumonia (< 1 month) Abnormal pulmonary function Acute myocardial infarction Congestive heart failure (< 1 month) History of inflammatory bowel disease Medical patient at bed rest Age 61-74 Arthroscopic surgery Major open surgery (> 45 min) Laparoscopic surgery (> 45 min) Malignancy Confined to bed (> 72 hours) Immobilizing plaster cast Central venous access Age >= 75 History of VTE Family history of VTE Factor V Leiden Prothrombin 50228Y Lupus anticoagulant Anticardiolipin antibodies Elevated serum homocysteine Heparin-induced thrombocytopenia Other congenital or acquired thrombophilia Stroke (< 1 month) Elective arthroplasty Hip, pelvis, or leg fracture Acute spinal cord injury (< 1 month) Prophylaxis Regimen Total Risk Factor Score Risk Level Prophylaxis Regimen 0-1 Low Early ambulation 2 Moderate Order ONE of the following: *Sequential Compression Device (SCD) *Heparin 5000 units SQ BID 3-4 Higher Order ONE of the following medications: *Heparin 5000 units SQ TID *Enoxaparin/Lovenox 40 mg SQ daily (WT < 150 kg, CrCl > 30 mL/min) *Enoxaparin/Lovenox 30 mg SQ daily (WT < 150 kg, CrCl > 10-29 mL/min) *Enoxaparin/Lovenox 30 mg SQ BID (WT < 150 kg, CrCl > 30 mL/min) AND/OR *Sequential Compression Device (SCD) 5 or more Highest Order ONE of the following medications: *Heparin 5000 units SQ TID (Preferred with Epidurals) *Enoxaparin/Lovenox 40 mg SQ daily (WT < 150 kg, CrCl > 30 mL/min) *Enoxaparin/Lovenox 30 mg SQ daily (WT < 150 kg, CrCl > 10-29 mL/min) *Enoxaparin/Lovenox 30 mg SQ BID (WT < 150 kg, CrCl > 30 mL/min) AND *Sequential Compression Device (SCD) Assessment and Plan Assessment and Plan 89-year-old male with a past medical history significant for A. fib anticoagulated on Coumadin, recurrent pleural effusions, hypertension, hyperlipidemia and hypothyroidism presents to the emergency department after being sent by his insulation manager for severe anemia. 1. Symptomatic anemia H&H 6.9.2 Patient currently receiving 2 units PRBCs No obvious sign of bleeding Hemoccult pending Follow H&H 2. Bilateral pleural effusions Consult pulmonology, appreciate recommendations Patient may need thoracentesis Holding Coumadin 3. CHF Monitor for signs of volume overload Gentle IV fluid hydration this patient nothing by mouth Last echo done 11/2014 with EF of 60-65% 4. Chronic kidney disease Creatinine 2.97, at baseline 5. Hypothyroidism TSH 6.19 Thyroid studies pending Continue home Synthroid 6. Chronic medical problems Continue home medications for A. fib, hypertension, hyperlipidemia FEN NPO after MN NS at 50 cc/hr Electrolytes: replete prn Holding anticoagulation for possible thoracentesis Physician Certification 2 Midnight Certification Type: Admission for Inpatient Services Order for Inpatient Services The services are ordered in accordance with Medicare regulations or non- Medicare payer requirements, as applicable. In the case of services not specified as inpatient-only, they are appropriately provided as inpatient services in accordance with the 2-midnight benchmark. Estimated LOS (days): 2 2 days is the estimated time the patient will need to remain in the hospital, assuming treatment plan goals are met and no additional complications. Post-Hospital Plan: Not yet determined Jaqueline Avery MD Aug 14, 2017 21:43
[2017-08-15] VITALS (9 sets, daily range): BP systolic 148–178; BP diastolic 67–81; PULSE 62–95; RESP 17–20; TEMP 96.8–97.9; O2SAT 94–98
[2017-08-15] MEDS: SODIUM CHLOR 0.9% 1000 ML INJ 1,000 ML IV SCH (01:08)
[2017-08-15] MEDS: SODIUM CHLORIDE 0.9% FLUSH 10 ML FLUSH IV FLUSH SCH ×3 (01:08→22:24)
[2017-08-15] MEDS: LEVOTHYROXINE SODIUM 100 MCG TAB PO SCH (06:56)
[2017-08-15 07:24] LABS: AUTOMATED NEUTROPHIL # 6.5 TH/MM3 (1.8-7.7); BASOPHIL % 0.3 % (0.0-2.0); EOSINOPHIL # 0.8 TH/MM3 (0-0.4); EOSINOPHIL % 9.1 % (0.0-4.0); HEMATOCRIT 26.2 % (39.0-51.0); HEMO FLAGS DIFF FINAL; LYMPH % 4.3 % (9.0-44.0); LYMPHOCYTE # 0.4 TH/MM3 (1.0-4.8); MEAN CORPUSCULAR HEMOGLOBIN 26.7 PG (27.0-34.0); MEAN CORPUSCULAR HGB CONC 33.3 % (32.0-36.0); MONO % 9.7 % (0.0-8.0); NEUT % 76.6 % (16.0-70.0); PLATELET COUNT 433 TH/MM3 (150-450); RED BLOOD COUNT 3.27 MIL/MM3 (4.50-5.90); RED CELL DISTRIBUTION WIDTH 15.8 % (11.6-17.2); WHITE BLOOD COUNT 8.5 TH/MM3 (4.0-11.0)
[2017-08-15 07:32] LABS: INTERNATIONAL NORMALIZED RATIO 1.4 RATIO; PROTHROMBIN TIME - PATIENT 15.2 SEC (9.8-11.6)
[2017-08-15 07:50] LABS: BICARBONATE 25.5 MEQ/L (21.0-32.0); POTASSIUM 4.8 MEQ/L (3.5-5.1)
[2017-08-15 08:00] LABS: FREE T3 1.63 PG/ML (2.18-3.98); FREE T4 1.12 NG/DL (0.76-1.46)
[2017-08-15] MEDS: DIGOXIN 0.25 MG TAB PO SCH (08:41)
[2017-08-15] MEDS: LISINOPRIL 20 MG TAB PO SCH (08:41)
[2017-08-15] MEDS: amLODIPine BESYLATE 5 MG TAB PO SCH (08:41)
[2017-08-15] MEDS: METOPROLOL SUCCINATE 50 MG EXTENDED RELEASE TAB PO SCH (08:41)
[2017-08-15] MEDS: DOCUSATE SODIUM 50 MG/SENNA 8.6 MG TAB PO SCH ×2 (08:43→22:23)
[2017-08-15] MEDS ORDERED: INFLUENZA VIRUS VACCINE (QUADRIVALENT) 0.5 ML SYR IM ONE (10:00)
--- NOTE | 2017-08-15 14:20 | EKG ---
Date Performed: 08/14/2017 Time Performed: 17:40:43 PTAGE: 89 years EKG: ATRIAL FIBRILLATION INCOMPLETE RIGHT BUNDLE BRANCH BLOCK NONSPECIFIC ST & T-WAVE ABNORMALIT Y ABNORMAL RHYTHM ECG PREVIOUS TRACING : 11/10/2014 13.02 COMPARED TO THE PREVIOUS EKG ATRIAL FIBRILLATION IS NEW DOCTOR: Ranjith Rowe Interpretating Date/Time 08/15/2017 14:14:38
--- NOTE | 2017-08-15 14:46 | HHI.PR ---
Subjective Remarks Follow-up anemia, pleural effusion. The patient reports mild shortness of breath. No chest pain, nausea, vomiting. Objective Vitals Vital Signs Date Time Temp Pulse Resp B/P (MAP) Pulse Ox O2 Delivery O2 Flow Rate FiO2 08/15/17 12:00 96.9 95 20 170/77 (108) 95 08/15/17 08:00 96.9 73 20 173/77 (109) 95 08/15/17 05:49 97.9 67 153/68 96 08/15/17 04:00 97.2 65 17 157/70 (99) 95 08/15/17 02:27 97.6 62 18 152/70 96 08/15/17 02:02 97.1 65 20 161/72 94 08/15/17 00:00 96.9 63 19 148/67 (94) 94 08/14/17 22:24 97.9 65 18 164/67 97 08/14/17 20:59 08/14/17 20:13 62 22 173/72 96 08/14/17 20:00 96.6 64 19 174/74 (107) 95 08/14/17 19:36 98.2 64 24 158/69 98 08/14/17 19:34 98.2 08/14/17 19:25 69 22 142/66 97 08/14/17 19:10 62 20 147/68 97 08/14/17 18:59 98.2 61 24 154/102 98 08/14/17 16:40 97.5 70 40 153/76 (101) 90 I/O 08/14/17 08/14/17 08/14/17 08/15/17 08/15/17 08/15/17 07:00 15:00 23:00 07:00 15:00 23:00 Intake Total 425 ml 648 ml 120 ml Output Total 500 ml Balance 425 ml 148 ml 120 ml Intake Oral 0 ml 120 ml Packed Cells 400 ml 400 ml FFP 218 ml Blood Product IV Normal Saline Flush 25 ml 30 ml Output Urine Total 500 ml Result Diagram: 08/15/17 0643 08/15/17 0643 Imaging Last Impressions Chest X-Ray 08/14/17 0000 Signed Impressions: Service Date/Time: Monday, August 14, 2017 17:11 - CONCLUSION: Bilateral pleural effusions larger on the right than the left. Carl Garza MD FACR Objective Remarks General: Elderly male in no acute distress. Heart: Regular rate and rhythm. No murmur. Lungs: Clear to auscultation bilaterally. No wheezes, rales, or rhonchi. Breathing is nonlabored. Abdomen: Soft, nontender, nondistended. Extremities: 1+ bilateral lower extremity edema. Psych: Alert and oriented. Procedures None Urinary Catheter: No Vascular Central Line Catheter: No A/P Assessment and Plan 1. Symptomatic anemia: Patient has received 2 units PRBCs. No obvious active bleeding. Stool Hemoccult is pending. Monitor H&H. 2. Bilateral pleural effusions: Pulmonology consultation is pending. Patient will likely need thoracentesis. Coumadin on hold. 3. Chronic diastolic congestive heart failure: Last echocardiogram showed ejection fraction of 60-65%. Caution with IV fluids. 4. Chronic kidney disease: At baseline. 5. Hypothyroidism: Continue Synthroid. 6. Atrial fibrillation: Coumadin on hold. Continue metoprolol, digoxin. 7. Hypertension: Continue lisinopril, amlodipine, metoprolol. 8. Hyperlipidemia: Continue statin. 9. DVT prophylaxis: Avoid chemical prophylaxis in anticipation of thoracentesis. Nikolai Guzman MD Aug 15, 2017 14:46
--- NOTE | 2017-08-15 18:49 | MB ---
cc: DIANA ORTIZ M.D. DATE OF CONSULTATION 08/15/2017 REASON FOR CONSULTATION Pleural effusion. HISTORY OF PRESENT ILLNESS Mr. Cardona is an 89-year-old male who was admitted with severe anemia requiring blood transfusion. The patient has known history of atrial fibrillation. His INR was elevated upon hospitalization, now down to 1.4. The patient has chronic atrial fibrillation, congestive heart failure, hypertension, hyperlipidemia and known bilateral effusions, larger on the right. The patient does have exertional dyspnea. No cough, no expectoration. No fever or chills. No hemoptysis. PAST MEDICAL HISTORY His past medical history is that of: 1. Atrial fibrillation. 2. Hypothyroidism. 3. Hypertension. 4. Hyperlipidemia. 5. He is status post valve repair in 2004. 6. Back surgery in the past. MEDICATIONS At home include: 1. Levothyroxine. 2. Coumadin. 3. Amlodipine. 4. Atorvastatin. 5. Metoprolol. 6. Lisinopril. FAMILY HISTORY Noncontributory. ALLERGIES None known to medication. REVIEW OF SYSTEMS A 12-point review of systems as per HPI and past history otherwise negative. PHYSICAL EXAMINATION VITAL SIGNS: On exam temperature 97, pulse 64, respiration 18, blood pressure 150/76, oxygen saturation 96% on room air. HEENT: Exam unremarkable. Eyes without icterus. without enlargement. CHEST: Decreased breath sounds both lung bases. CARDIOVASCULAR: Cardiac exam irregularity noted. ABDOMEN: Lax. Audible bowel sounds. EXTREMITIES: 1+ edema. LABORATORY DATA White count 10,000, hemoglobin upon presentation 6.9, platelets at 524,000. Sodium 140, potassium 5.1, BUN 45, creatinine 2.9. INR now at 1.4. IMPRESSION 1. Bilateral pleural effusions. Etiology unclear, probably cardiac in origin. Associated malnutrition. 2. Atrial fibrillation on Coumadin. 3. Hypertension. 4. Hyperlipidemia. 5. Hypothyroidism. 6. Status post valve repair. 7. Congestive heart failure. 8. Chronic kidney disease. PLAN The patient has received packed red cells for his anemia. Evaluation for source of GI bleed is underway. His stool was negative for occult blood. We will proceed with diagnostic and therapeutic right thoracentesis which the patient was going to do on Monday as an out patient prior to his hospitalization. We will follow-up his care along with you and depending on progress proceed further. Diana Ortiz MD [id number] /6:12 PM /6:34 PM
[2017-08-15] MEDS: ATORVASTATIN 40 MG TAB PO SCH (22:23)
[2017-08-16] VITALS (8 sets, daily range): BP systolic 156–170; BP diastolic 60–89; PULSE 54–78; RESP 16–22; TEMP 95.8–97.6; O2SAT 92–97
[2017-08-16] MEDS: SODIUM CHLOR 0.9% 1000 ML INJ 1,000 ML IV SCH ×2 (02:33→17:53)
[2017-08-16] MEDS: LEVOTHYROXINE SODIUM 100 MCG TAB PO SCH (05:55)
[2017-08-16 08:03] LABS: AUTOMATED NEUTROPHIL # 8.8 TH/MM3 (1.8-7.7); BASOPHIL % 0.3 % (0.0-2.0); EOSINOPHIL # 0.3 TH/MM3 (0-0.4); HEMATOCRIT 30.2 % (39.0-51.0); HEMO FLAGS DIFF FINAL; LYMPH % 3.2 % (9.0-44.0); LYMPHOCYTE # 0.3 TH/MM3 (1.0-4.8); MEAN CELL VOLUME 81.8 FL (80.0-100.0); MEAN CORPUSCULAR HEMOGLOBIN 26.6 PG (27.0-34.0); MEAN CORPUSCULAR HGB CONC 32.5 % (32.0-36.0); MONO % 7.4 % (0.0-8.0); NEUT % 86.1 % (16.0-70.0); PLATELET COUNT 490 TH/MM3 (150-450); RED BLOOD COUNT 3.69 MIL/MM3 (4.50-5.90); RED CELL DISTRIBUTION WIDTH 16.1 % (11.6-17.2); WHITE BLOOD COUNT 10.2 TH/MM3 (4.0-11.0)
[2017-08-16 08:08] LABS: INTERNATIONAL NORMALIZED RATIO 1.3 RATIO; PROTHROMBIN TIME - PATIENT 14.4 SEC (9.8-11.6)
[2017-08-16 08:25] LABS: BICARBONATE 24.7 MEQ/L (21.0-32.0); POTASSIUM 4.7 MEQ/L (3.5-5.1)
[2017-08-16] MEDS: amLODIPine BESYLATE 5 MG TAB PO SCH (08:32)
[2017-08-16] MEDS: LISINOPRIL 20 MG TAB PO SCH (08:32)
[2017-08-16] MEDS: METOPROLOL SUCCINATE 50 MG EXTENDED RELEASE TAB PO SCH (08:32)
[2017-08-16] MEDS: DOCUSATE SODIUM 50 MG/SENNA 8.6 MG TAB PO SCH ×2 (08:32→20:15)
[2017-08-16] MEDS: DIGOXIN 0.25 MG TAB PO SCH (08:32)
[2017-08-16] MEDS: SODIUM CHLORIDE 0.9% FLUSH 10 ML FLUSH IV FLUSH SCH ×2 (08:36→20:14)
--- NOTE | 2017-08-16 10:25 | RADRPT ---
EXAM DATE/TIME: 08/16/2017 10:08 [facility] COMPARISON: CHEST PA & LAT, August 14, 2017, 17:11. CHEST EXPIRATION ONLY, April 17, 2017, 14:30. INDICATIONS : Post right side thoracentesis MEDICAL HISTORY : Hypercholesterolemia. Hypertension atrial fibrillation SURGICAL HISTORY : cardiac cath, heart valve repair ENCOUNTER: Initial ACUITY: 2 days PAIN SCORE: 0/10 LOCATION: Bilateral chest FINDINGS: A single portable frontal view the chest shows no pneumothorax following right thoracentesis. Either pleural thickening or loculated fluid is seen within the right base. A left pleural effusion is noted . Bibasilar consolidation. Heart is mildly enlarged. Median sternotomy wires. CONCLUSION: 1. No pneumothorax following right thoracentesis. 2. Bilateral pleural effusions the right appears loculated. 3. Bibasilar consolidation. Deion Awad Jr., MD on August 16, 2017 at 10:22 Board Certified Radiologist. This report was verified electronically.
--- NOTE | 2017-08-16 10:39 | RADRPT ---
EXAM DATE/TIME: 08/16/2017 09:01 [facility] COMPARISON: EXTERNAL COMPARISON: US GUIDED THORACENTESIS RIGHT, April 17, 2017, 13:43. [facility], CT THORAX, W/O CONTRAST, N ov 6 2016, XR CHEST PA & LAT, May 01, 2017, April 21, 2017. INDICATIONS : Right pleural effusion. MEDICAL HISTORY : Hypercholesterolemia. Hypertension. Afib. Pleural effusion. SURGICAL HISTORY : Appendectomy. Cardiac cath. Back surgery. Heart valve repair. Thoracentesis. ENCOUNTER: Subsequent ACUITY: 4 - 6 months PAIN SCORE: 4/10 LOCATION: Right chest FLUID: Total volume of 1000 cc of clear, yellow fluid was removed. Fluid was sent to lab for ordered studies. TECHNIQUE: 1. Ultrasound guidance for thoracentesis. 2. Thoracentesis. The risks, benefits, and alternatives to ultrasound guided thoracentesis were explained to the patien t in lay simple terms, including the risk of bleeding and infection. Written and verbal informed con sent was obtained. Appropriate area for thoracentesis was marked under ultrasound guidance with the patient in the uprig ht position. Overlying skin was prepped and draped in the usual sterile fashion and with local anest hetic, a dermatotomy was made with an 11 blade scalpel. A 6 Italian thoracentesis catheter was placed in the pleural space and fluid was removed. Catheter was then removed and a sterile dressing applie d. There were no immediate complications. The patient tolerated the procedure well and the left the ultrasound suite in stable condition. Chest radiograph is to be obtained. CONCLUSION: Uncomplicated ultrasound guided right thoracentesis. Ultrasound images do suggest some loculation to the fluid. Deion Awad Jr., MD on August 16, 2017 at 10:37 Board Certified Radiologist. This report was verified electronically.
[2017-08-16 11:10] LABS: PLEURAL FLUID LYMPHS 83 %
--- NOTE | 2017-08-16 13:54 | HHI.PR ---
Subjective Remarks Follow-up anemia, pleural effusion. Patient just returned from thoracentesis. He states that he feels about the same as he did before. No chest pain. Shortness of breath is unchanged. Objective Vitals Vital Signs Date Time Temp Pulse Resp B/P (MAP) Pulse Ox O2 Delivery O2 Flow Rate FiO2 08/16/17 12:00 97.5 70 17 158/70 (99) 96 08/16/17 10:25 65 20 158/71 (100) 97 08/16/17 10:10 97.6 64 20 160/73 (102) 96 08/16/17 09:11 97.6 63 22 160/64 (96) 93 08/16/17 08:00 96.8 70 17 170/77 (108) 92 08/16/17 00:00 95.8 71 17 156/70 (98) 97 08/15/17 20:00 96.8 76 17 178/81 (113) 94 178/81 (113) 08/15/17 16:00 96.9 72 17 168/74 (105) 98 I/O 08/15/17 08/15/17 08/15/17 08/16/17 08/16/17 08/16/17 07:00 15:00 23:00 07:00 15:00 23:00 Intake Total 648 ml 120 ml 1000 ml 300 ml Output Total 500 ml 200 ml 500 ml Balance 148 ml 120 ml -200 ml 500 ml 300 ml Intake Oral 0 ml 120 ml IV Total 1000 ml 300 ml Packed Cells 400 ml FFP 218 ml Blood Product IV Normal Saline Flush 30 ml Output Urine Total 500 ml 200 ml 500 ml # Bowel Movements 0 Result Diagram: 08/16/17 0638 08/16/17 0638 Imaging Last Impressions Thoracentesis Ultrasound 08/16/17 0000 Signed Impressions: Service Date/Time: Wednesday, August 16, 2017 09:01 - CONCLUSION: Uncomplicated ultrasound guided right thoracentesis. Ultrasound images do suggest some loculation to the fluid. Deion Awad Jr., MD Chest X-Ray 08/16/17 0000 Signed Impressions: Service Date/Time: Wednesday, August 16, 2017 10:08 - CONCLUSION: 1. No pneumothorax following right thoracentesis. 2. Bilateral pleural effusions the right appears loculated. 3. Bibasilar consolidation. Deion Awad Jr., MD Objective Remarks General: Elderly male in no acute distress. Heart: Regular rate and rhythm. No murmur. Lungs: Decreased breath sounds on the right. Breathing is nonlabored. Abdomen: Soft, nontender, nondistended. Extremities: 1+ bilateral lower extremity edema. Psych: Alert and oriented. Procedures 08/16/17 thoracentesis Urinary Catheter: No Vascular Central Line Catheter: No A/P Assessment and Plan 1. Symptomatic anemia: Patient has received 2 units PRBCs. No obvious active bleeding. Stool Hemoccult is negative. H&H improved following transfusion. 2. Bilateral pleural effusions: Appreciate pulmonology recommendations. Status post thoracentesis. 3. Chronic diastolic congestive heart failure: Last echocardiogram showed ejection fraction of 60-65%. Caution with IV fluids. 4. Chronic kidney disease: At baseline. 5. Hypothyroidism: Continue Synthroid. 6. Atrial fibrillation: Coumadin on hold. Continue metoprolol, digoxin. 7. Hypertension: Continue lisinopril, amlodipine, metoprolol. 8. Hyperlipidemia: Continue statin. 9. DVT prophylaxis: JIN Costa. Coumadin on hold. Discharge Planning Possible discharge later today or tomorrow pending clearance by pulmonology. Nikolai Guzman MD Aug 16, 2017 13:54
--- NOTE | 2017-08-16 19:12 | HHI.PR ---
Subjective Remarks ALERT NO SOB AT REST THORACENTESIS DONE FEELS MUCH BETTER PLAN CHECK FLUID RESULTS INCREASE ACTIVITY O2 NEEDED Objective Vital Signs Date Time Temp Pulse Resp B/P (MAP) Pulse Ox O2 Delivery O2 Flow Rate FiO2 08/16/17 16:00 97.4 54 16 161/60 (93) 92 08/16/17 12:00 97.5 70 17 158/70 (99) 96 08/16/17 10:25 65 20 158/71 (100) 97 08/16/17 10:10 97.6 64 20 160/73 (102) 96 08/16/17 09:11 97.6 63 22 160/64 (96) 93 08/16/17 08:00 77 08/16/17 08:00 96.8 70 17 170/77 (108) 92 08/16/17 00:00 95.8 71 17 156/70 (98) 97 08/15/17 20:00 96.8 76 17 178/81 (113) 94 178/81 (113) I/O 08/15/17 08/15/17 08/15/17 08/16/17 08/16/17 08/16/17 07:00 15:00 23:00 07:00 15:00 23:00 Intake Total 648 ml 120 ml 1000 ml 300 ml 300 ml Output Total 500 ml 200 ml 500 ml 2 ml Balance 148 ml 120 ml -200 ml 500 ml 300 ml 298 ml Intake Oral 0 ml 120 ml 300 ml IV Total 1000 ml 300 ml Packed Cells 400 ml FFP 218 ml Blood Product IV Normal Saline Flush 30 ml Output Urine Total 500 ml 200 ml 500 ml 2 ml # Bowel Movements 0 0 Result Diagram: 08/16/1738 08/16/1738 Diana Ortiz MD Aug 16, 2017 19:12
[2017-08-16] MEDS: ATORVASTATIN 40 MG TAB PO SCH (20:15)
[2017-08-17] VITALS: BP 159/69; PULSE 65; RESP 20; TEMP 96.9; O2SAT 95
[2017-08-17 04:00] VITALS: BP 146/70; PULSE 80; RESP 20; TEMP 96.1; O2SAT 95
[2017-08-17] MEDS: LEVOTHYROXINE SODIUM 100 MCG TAB PO SCH (05:36)
[2017-08-17 08:00] VITALS: BP 176/73; PULSE 64; RESP 17; TEMP 95.7; O2SAT 96
[2017-08-17 08:45] VITALS: PULSE 69
[2017-08-17] MEDS: SODIUM CHLORIDE 0.9% FLUSH 10 ML FLUSH IV FLUSH SCH (09:00)
[2017-08-17] MEDS: DOCUSATE SODIUM 50 MG/SENNA 8.6 MG TAB PO SCH (09:56)
[2017-08-17] MEDS: METOPROLOL SUCCINATE 50 MG EXTENDED RELEASE TAB PO SCH (09:56)
[2017-08-17] MEDS: DIGOXIN 0.25 MG TAB PO SCH (09:57)
[2017-08-17] MEDS: LISINOPRIL 20 MG TAB PO SCH (09:57)
[2017-08-17] MEDS: amLODIPine BESYLATE 5 MG TAB PO SCH (09:57)
[2017-08-17] MEDS: SODIUM CHLOR 0.9% 1000 ML INJ 1,000 ML IV SCH (10:01)
--- NOTE | 2017-08-17 10:14 | HHI.PR ---
Subjective Remarks Follow up pleural effusion, anemia. The patient states that he feels better today. He denies chest pain, dyspnea. Ambulated with PT this morning. Wants to go home. Objective Vitals Vital Signs Date Time Temp Pulse Resp B/P (MAP) Pulse Ox O2 Delivery O2 Flow Rate FiO2 08/17/17 08:00 95.7 64 17 176/73 (107) 96 08/17/17 04:00 96.1 80 20 146/70 (95) 95 08/17/17 00:00 96.9 65 20 159/69 (99) 95 08/16/17 20:00 78 08/16/17 20:00 96.5 69 20 163/89 (113) 96 08/16/17 16:00 97.4 54 16 161/60 (93) 92 08/16/17 12:00 97.5 70 17 158/70 (99) 96 08/16/17 10:25 65 20 158/71 (100) 97 08/16/17 10:10 97.6 64 20 160/73 (102) 96 I/O 08/16/17 08/16/17 08/16/17 08/17/17 08/17/17 08/17/17 07:00 15:00 23:00 07:00 15:00 23:00 Intake Total 1000 ml 300 ml 300 ml 120 ml Output Total 500 ml 2 ml 500 ml Balance 500 ml 300 ml 298 ml -380 ml Intake Oral 300 ml 120 ml IV Total 1000 ml 300 ml Output Urine Total 500 ml 2 ml 500 ml # Bowel Movements 0 0 Result Diagram: 08/16/17 0638 08/16/17 0638 Imaging Last Impressions Thoracentesis Ultrasound 08/16/17 0000 Signed Impressions: Service Date/Time: Wednesday, August 16, 2017 09:01 - CONCLUSION: Uncomplicated ultrasound guided right thoracentesis. Ultrasound images do suggest some loculation to the fluid. Deion Awad Jr., MD Chest X-Ray 08/16/17 0000 Signed Impressions: Service Date/Time: Wednesday, August 16, 2017 10:08 - CONCLUSION: 1. No pneumothorax following right thoracentesis. 2. Bilateral pleural effusions the right appears loculated. 3. Bibasilar consolidation. Deion Awad Jr., MD Objective Remarks General: Elderly male in no acute distress. Sitting up in a chair. Heart: Regular rate and rhythm. No murmur. Lungs: Decreased breath sounds on the right. Breathing is nonlabored. Abdomen: Soft, nontender, nondistended. Extremities: Trace bilateral lower extremity edema. Psych: Alert and oriented. Procedures 08/16/17 thoracentesis Urinary Catheter: No Vascular Central Line Catheter: No A/P Assessment and Plan 1. Symptomatic anemia: Patient has received 2 units PRBCs. No obvious active bleeding. Stool Hemoccult is negative. H&H improved following transfusion. Labs are pending today. 2. Bilateral pleural effusions: Appreciate pulmonology recommendations. Status post thoracentesis. 3. Chronic diastolic congestive heart failure: Last echocardiogram showed ejection fraction of 60-65%. Caution with IV fluids. 4. Chronic kidney disease: At baseline. 5. Hypothyroidism: Continue Synthroid. 6. Atrial fibrillation: Coumadin on hold. Continue metoprolol, digoxin. 7. Hypertension: Continue lisinopril, amlodipine, metoprolol. 8. Hyperlipidemia: Continue statin. 9. DVT prophylaxis: JIN Costa. Coumadin on hold. Discharge Planning Possible discharge today pending clearance by pulmonology. Nikolai Guzman MD Aug 17, 2017 10:14
--- NOTE | 2017-08-17 10:15 | HHI.DCPOC ---
Discharge Care Plan Diagnosis: (1) Pleural effusion (2) Anemia Goals to Promote Your Health * To prevent worsening of your condition and complications * To maintain your health at the optimal level Directions to Meet Your Goals Take your medications as prescribed Follow your dietary instruction Follow activity as directed Keep your appointments as scheduled Take your immunizations and boosters as scheduled If your symptoms worsen call your PCP, if no PCP go to Urgent Care Center or Emergency Room Smoking is Dangerous to Your Health. Avoid second hand smoke Call the 24-hour hour crisis hotline for domestic abuse at Nikolai Guzman MD Aug 17, 2017 10:15
[2017-08-17] MEDS ORDERED: CEFU1TAB18 PO (11:59)
[2017-08-17 12:00] VITALS: BP 161/67; PULSE 65; RESP 17; TEMP 95.8; O2SAT 90
[2017-08-17 13:03] LABS: BASOPHIL % 0.2 % (0.0-2.0); EOSINOPHIL # 0.5 TH/MM3 (0-0.4); EOSINOPHIL % 4.6 % (0.0-4.0); HEMATOCRIT 28.8 % (39.0-51.0); LYMPH % 3.3 % (9.0-44.0); LYMPHOCYTE # 0.3 TH/MM3 (1.0-4.8); MEAN CORPUSCULAR HEMOGLOBIN 25.8 PG (27.0-34.0); MEAN CORPUSCULAR HGB CONC 31.8 % (32.0-36.0); MONO % 7.5 % (0.0-8.0); NEUT % 84.4 % (16.0-70.0); PLATELET COUNT 473 TH/MM3 (150-450); RED BLOOD COUNT 3.55 MIL/MM3 (4.50-5.90); RED CELL DISTRIBUTION WIDTH 16.2 % (11.6-17.2); WHITE BLOOD COUNT 10.6 TH/MM3 (4.0-11.0)
[2017-08-17 13:10] LABS: HEMO FLAGS DIFF FINAL
[2017-08-17 13:37] LABS: BICARBONATE 23.3 MEQ/L (21.0-32.0)
[2017-08-17 13:45] LABS: POTASSIUM 5.5 MEQ/L (3.5-5.1)
--- NOTE | 2017-08-17 13:56 | HHI.DS ---
Discharge Summary Admission Date Aug 14, 2017 at 19:29 Discharge Date: Aug 17, 2017 Admitting Diagnosis symptomatic anemia/pleural effusion (1) Pleural effusion ICD Code: J90 - Pleural effusion, not elsewhere classified Status: Acute (2) Anemia ICD Code: D64.9 - Anemia Status: Acute Procedures 08/16/17 thoracentesis Brief History - From Admission 89-year-old male with a past medical history significant for A. fib anticoagulated on Coumadin, CHF, hypertension, hyperlipidemia, and history of recurrent pleural effusions presented to the emergency department after being sent in by his analysis reporting developer for severe anemia. The patient complains of a 6 month history of increasing shortness of breath. 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 Patient was discharged from [facility] in April where he was treated for right toe cellulitis. He had a pleurocentesis on the right side at that time. He states he is supposed to have a thoracentesis with his neurological surgeon soon. He cannot remember the name of his analysis reporting developer or his neurological surgeon. He endorses increasing shortness of breath, worse with exertion. He denies chest pain. Lab work was significant for an H&H of 6.9/ 20.2. Creatinine 2.97, which is baseline for the patient. TSH 6.19. BNP 321. Chest x-ray significant for bilateral pleural effusions, right greater than left. CBC/BMP: 08/17/17 1244 08/17/17 1244 Significant Findings Laboratory Tests Test 08/14/17 17:35 08/15/17 06:43 08/16/17 06:38 08/16/17 10:00 Red Blood Count 2.51 MIL/MM3 (4.50-5.90) 3.27 MIL/MM3 (4.50-5.90) 3.69 MIL/MM3 (4.50-5.90) Hemoglobin 6.9 GM/DL (13.0-17.0) 8.7 GM/DL (13.0-17.0) 9.8 GM/DL (13.0-17.0) Hematocrit 20.2 % (39.0-51.0) 26.2 % (39.0-51.0) 30.2 % (39.0-51.0) Platelet Count 524 TH/MM3 (150-450) 490 TH/MM3 (150-450) Neutrophils (%) (Auto) 76.2 % (16.0-70.0) 76.6 % (16.0-70.0) 86.1 % (16.0-70.0) Lymphocytes (%) (Auto) 5.4 % (9.0-44.0) 4.3 % (9.0-44.0) 3.2 % (9.0-44.0) Monocytes (%) (Auto) 10.2 % (0.0-8.0) 9.7 % (0.0-8.0) Eosinophils (%) (Auto) 7.7 % (0.0-4.0) 9.1 % (0.0-4.0) Lymphocytes # (Auto) 0.5 TH/MM3 (1.0-4.8) 0.4 TH/MM3 (1.0-4.8) 0.3 TH/MM3 (1.0-4.8) Monocytes # (Auto) 1.0 TH/MM3 (0-0.9) Eosinophils # (Auto) 0.8 TH/MM3 (0-0.4) 0.8 TH/MM3 (0-0.4) Prothrombin Time 19.0 SEC (9.8-11.6) 15.2 SEC (9.8-11.6) 14.4 SEC (9.8-11.6) Activated Partial Thromboplast Time 40.2 SEC (24.3-30.1) Blood Urea Nitrogen 45 MG/DL (7-18) 43 MG/DL (7-18) 43 MG/DL (7-18) Creatinine 2.97 MG/DL (0.60-1.30) 2.74 MG/DL (0.60-1.30) 2.57 MG/DL (0.60-1.30) Random Glucose 116 MG/DL (74-106) 72 MG/DL (74-106) Calcium Level 7.8 MG/DL (8.5-10.1) 7.8 MG/DL (8.5-10.1) 8.0 MG/DL (8.5-10.1) Chloride Level 108 MEQ/L (98-107) 109 MEQ/L (98-107) Estimat Glomerular Filtration Rate 20 ML/MIN (>89) 22 ML/MIN (>89) 24 ML/MIN (>89) Mean Corpuscular Hemoglobin 26.7 PG (27.0-34.0) 26.6 PG (27.0-34.0) Free Triiodothyronine (T3) pg/dL 1.63 PG/ML (2.18-3.98) Neutrophils # (Auto) 8.8 TH/MM3 (1.8-7.7) Pleural Fluid WBC 420 /MM3 (0-10) Pleural Fluid RBC 10341 /MM3 (0-0) Test 08/17/17 12:44 Red Blood Count 3.55 MIL/MM3 (4.50-5.90) Hemoglobin 9.2 GM/DL (13.0-17.0) Hematocrit 28.8 % (39.0-51.0) Mean Corpuscular Hemoglobin 25.8 PG (27.0-34.0) Mean Corpuscular Hemoglobin Concent 31.8 % (32.0-36.0) Platelet Count 473 TH/MM3 (150-450) Neutrophils (%) (Auto) 84.4 % (16.0-70.0) Lymphocytes (%) (Auto) 3.3 % (9.0-44.0) Eosinophils (%) (Auto) 4.6 % (0.0-4.0) Neutrophils # (Auto) 9.0 TH/MM3 (1.8-7.7) Lymphocytes # (Auto) 0.3 TH/MM3 (1.0-4.8) Eosinophils # (Auto) 0.5 TH/MM3 (0-0.4) Blood Urea Nitrogen 44 MG/DL (7-18) Creatinine 2.60 MG/DL (0.60-1.30) Random Glucose 125 MG/DL (74-106) Calcium Level 7.7 MG/DL (8.5-10.1) Potassium Level 5.5 MEQ/L (3.5-5.1) Chloride Level 111 MEQ/L (98-107) Estimat Glomerular Filtration Rate 23 ML/MIN (>89) Imaging Last Impressions Thoracentesis Ultrasound 08/16/17 0000 Signed Impressions: Service Date/Time: Wednesday, August 16, 2017 09:01 - CONCLUSION: Uncomplicated ultrasound guided right thoracentesis. Ultrasound images do suggest some loculation to the fluid. Deion Awad Jr., MD Chest X-Ray 08/16/17 0000 Signed Impressions: Service Date/Time: Wednesday, August 16, 2017 10:08 - CONCLUSION: 1. No pneumothorax following right thoracentesis. 2. Bilateral pleural effusions the right appears loculated. 3. Bibasilar consolidation. Deion Awad Jr., MD PE at Discharge General: Elderly male in no acute distress. Sitting up in a chair. Heart: Regular rate and rhythm. No murmur. Lungs: Decreased breath sounds on the right. Breathing is nonlabored. Abdomen: Soft, nontender, nondistended. Extremities: Trace bilateral lower extremity edema. Psych: Alert and oriented. Hospital Course The patient was admitted for management of anemia and pleural effusion. He received transfusion and hemoglobin improved. Pulmonology was consulted. Thoracentesis was done. Patient's symptoms improved. He had no further signs of bleeding and hemoglobin remained stable. He was cleared for discharge by pulmonology. Pt Condition on Discharge: Stable Discharge Disposition: Discharge Home Discharge Time: > 30 minutes Discharge Instructions DIET: Follow Instructions for: Heart Healthy Diet Speech Therapy-Diet Recommends: Honey Thickened Liquids, Mechanical Soft Activities you can perform: Regular-No Restrictions Other Activity Instructions: With assistive device Follow up Referrals: Cardiology PCP Follow-up - 1 Week with Zoe Chavez MD Pulmonology - 1 Week with Diana Ortiz MD New Medications: Cefuroxime (Ceftin) 250 Mg Tab 500 MG PO BID for Infection, #14 TAB 0 Refills Continued Medications: Amlodipine (Amlodipine) 5 Mg Tab 5 MG PO DAILY for Blood Pressure Management, #30 TAB 0 Refills Atorvastatin (Atorvastatin) 40 Mg Tab 40 MG PO HS for Cholesterol Management, #30 TAB 0 Refills Digoxin (Digoxin) 0.25 Mg Tab 0.25 MG PO DAILY for Regulate Heart Beat, #30 TAB 0 Refills Levothyroxine (Levothyroxine) 100 Mcg Tab 100 MCG PO DAILY for Thyroid, #30 TAB 0 Refills Lisinopril (Lisinopril) 40 Mg Tab 40 MG PO DAILY for Blood Pressure Management, #30 TAB 0 Refills Metoprolol Succinate ER 24 HR (Metoprolol Succinate ER 24 HR) 100 Mg Tab 100 MG PO DAILY, #30 TAB 0 Refills Discontinued Medications: Warfarin (Jantoven) 5 Mg Tab 5 MG PO DAILY for Blood Clot Prevention, #30 TAB 0 Refills Nikolai Guzman MD Aug 17, 2017 13:56
== END 2017-08-17 14:50 | disposition home or self-care (01) | DRG 812 ==
LOC: NEPC 16:38 → NEDA 19:29 → N07B 20:44
PROVIDERS: ADMIT Family Medicine; ATTEND Family Medicine
PROC: 30253L1 (ICD-10-PCS; principal; 2017-08-14)
PROC: 30253N1 (ICD-10-PCS; 2017-08-14)
PROC: 0W993ZX Drainage of Right Pleural Cavity, Percutaneous Approach, Diagnostic (ICD-10-PCS; 2017-08-16)
DX: D64.9 Anemia, unspecified (principal); J90 Pleural effusion, not elsewhere classified; E46 Unspecified protein-calorie malnutrition; E11.22 Type 2 diabetes mellitus with diabetic chronic kidney disease; I50.32 Chronic diastolic (congestive) heart failure; I13.0 Hypertensive heart and chronic kidney disease with heart failure and stage 1 through stage 4 chronic kidney disease, or unspecified chronic kidney disease; I48.2 Chronic atrial fibrillation; I31.3 Pericardial effusion (noninflammatory); E03.9 Hypothyroidism, unspecified; E78.5 Hyperlipidemia, unspecified; H91.90 Unspecified hearing loss, unspecified ear; N18.9 Chronic kidney disease, unspecified; Z79.01 Long term (current) use of anticoagulants; Z87.891 Personal history of nicotine dependence; Z95.2 Presence of prosthetic heart valve; R06.02 Shortness of breath
CPT/HCPCS: 32555; 36430; 71010; 71020; 80048; 82150; 82272; 82945; 83615; 83986; 84157; 84439; 84481; 85025; 85610; 85730; 86850; 86900; 86901; 86920; 86927; 87015; 87070; 87102; 87116; 87205; 87206; 88305; 89051; 93005; C1729; J7030; J7050; P9016; P9017

== ENCOUNTER → 2017-08-14 | Outpatient (CLI) | payer MEDICARE, BC ==
[~2017-08-14] MED LIST changes: +CEFU1TAB18 PO; -METO100T9 PO; +METO1TAB43 PO
[2017-08-14 14:40] LABS: RHEUMATOID FACTOR TRIGGER LESS THAN 10.0 IU/ML (0.0-14.9)
[2017-08-14 14:59] LABS: MEAN CELL VOLUME 78.3 FL (80.0-100.0); MEAN CORPUSCULAR HEMOGLOBIN 25.1 PG (27.0-34.0); MEAN CORPUSCULAR HGB CONC 32.1 % (32.0-36.0); PLATELET COUNT 600 TH/MM3 (150-450); RED BLOOD COUNT 2.55 MIL/MM3 (4.50-5.90); RED CELL DISTRIBUTION WIDTH 16.1 % (11.6-17.2); WHITE BLOOD COUNT 10.8 TH/MM3 (4.0-11.0)
[2017-08-14 15:00] LABS: REVIEW FLAG FINAL
[2017-08-14 15:30] LABS: BLOOD UREA NITROGEN 42 MG/DL (7-18); GLOMERULAR FILTRATION RATE 21 ML/MIN (>89)
[2017-08-14 15:31] LABS: ALKALINE PHOSPHATASE 104 U/L (45-117); ALT (GPT) 29 U/L (12-78); ANION GAP 6 MEQ/L (5-15); AST (GOT) 25 U/L (15-37); BICARBONATE 26.6 MEQ/L (21.0-32.0); CHLORIDE 106 MEQ/L (98-107); GLUCOSE,FASTING 114 MG/DL (74-99); POTASSIUM 5.4 MEQ/L (3.5-5.1); SODIUM (NA) 139 MEQ/L (136-145); TOTAL BILIRUBIN ADULT 0.2 MG/DL (0.2-1.0)
[2017-08-14 15:32] LABS: DIGOXIN 1.3 NG/ML (0.8-2.0)
== END ==
LOC: PLAB 08:09
PROVIDERS: ATTEND Internal Medicine Interventional Cardiology
DX: I31.3 Pericardial effusion (noninflammatory) (principal); R06.02 Shortness of breath; I48.2 Chronic atrial fibrillation; J90 Pleural effusion, not elsewhere classified; I10 Essential (primary) hypertension
CPT/HCPCS: 36415; 80053; 80162; 83880; 84443; 85027; 86038; 86430

== ENCOUNTER → 2017-08-22 | Outpatient (CLI) | payer MEDICARE, BC ==
[~2017-08-22] MED LIST changes: +CEFU1TAB18 PO; -CEPH500C PO; -DOXY100T PO; -JANT2.5T PO; -JANT5TAB PO
[2017-08-22 10:34] LABS: INTERNATIONAL NORMALIZED RATIO 2.4 RATIO; PROTHROMBIN TIME - PATIENT 27.1 SEC (9.8-11.6)
== END ==
LOC: PLAB 09:33
PROVIDERS: ATTEND Family Medicine
DX: I48.91 Unspecified atrial fibrillation (principal); Z79.01 Long term (current) use of anticoagulants
CPT/HCPCS: 36415; 85610